=== PATIENT | male | born 1990 | race Caucasian/White ===

== ENCOUNTER 2020-07-25 11:49 | Emergency (ER) | payer MEDICAID, SELFPAY ==
[2020-07-25 11:53] VITALS: BP 115/57; BP 126/63; PULSE 105; PULSE 110; RESP 19; TEMP 36.5; O2SAT 97; O2SAT 98; BMI 23.0
[2020-07-25 11:56] VITALS: BP 115/57; PULSE 102; RESP 14; TEMP 36.5; O2SAT 96
--- NOTE | 2020-07-25 11:59 | ED_ITS ---
HPI - Seizure General Chief Complaint: Seizure Stated Complaint: WITNESSED SZ, ALERT/ORIENTED @ THIS TIME Time Seen by Provider: 07/25/20 11:58 Source: patient and EMS Mode of arrival: EMS Limitations: no limitations History of Present Illness HPI Narrative: 29 yo male with hx of GTC has seizures once a month on keppra BID 1000mg states he's compliant seizure in bed no trauma reported, did drink ETOH last night MD complaint: seizure Onset (ago): minute(s) Description of Episode: loss of consciousness and tonic-clonic movement Duration of episode: 4 -: minutes(s) Witnessed: Yes - by Other Trauma: No Seizure History: Yes Place: Home Possible Precipitating Event: other (ETOH) Associated symptoms: denies other symptoms Related Data Home Medications Medication Instructions Recorded Confirmed levetiracetam [Keppra] 1,000 mg PO BID 07/25/20 07/25/20 Previous Rx's Medication Instructions Recorded levetiracetam 1,000 mg PO BID #60 tab 07/25/20 Allergies Allergy/AdvReac Type Severity Reaction Status Date / Time No Known Allergies Allergy Verified 07/25/20 11:58 Review of Systems Review of Systems: Constitutional : No Weight loss, No Fever, No Chills, No Fatigue, No Malaise ENT/Mouth : No sore throat, No Rhinorrhea Eyes: No Eye Pain, No Swelling, No Redness Cardiovascular : No Chest Pain, No SOB, No Dyspnea on Exertion, No Orthopnea, No Edema, No Palpitations Respiratory : No Cough, No Sputum, No Wheezing Gastrointestinal : No Nausea, No Vomiting, No Diarrhea, No Constipation, No abdominal Pain, No Hematochezia, No Melena Genitourinary : No Dysuria, No Urinary Frequency, No Hematuria, Musculoskeletal : No joint pain, No Myalgias, No Joint Swelling Skin : No Skin Lesions, No rash Neuro : No Weakness, No Numbness, No Dizziness, No Headache, pos seizure Psych : No Anxiety/Panic, No Depression Heme/Lymph: No Bruising, No Bleeding,No Lymphadenopathy Endocrine : No Polyuria, No Polydipsia All other systems reviewed and are negative [facility] Past Medical History Attestation statement: The following information was validated with the patient. Medical History Seizures Social History Social History Alcohol intake: current Alcohol type: beer Patient Tobacco Use Status: Current everyday Tobacco user Use of substances other than those prescribed or required for medical reasons: No Advance Directives: Yes Advance Directives Information Provided: No Advance Directives on File: No Physical Exam Vital Signs: Vital Signs: Last Vital Signs Temp 97.7 F 07/25/20 11:56 Pulse 102 H 07/25/20 11:56 Resp 14 07/25/20 11:56 BP 115/57 L 07/25/20 11:56 Pulse Ox 96 07/25/20 11:56 Body Mass Index 23.0 Appearance: Alert. Oriented X3. No acute distress. Eyes: Pupils equal, round and reactive to light. ENT: Pharynx normal. Neck: Normal inspection. Neck supple. CVS: Normal heart rate and rhythm. Pulses normal. Respiratory: No respiratory distress. Breath sounds normal. Abdomen: Soft and nontender. Skin: Skin warm and dry. Normal skin color. Normal skin turgor. Extremities: No lower extremity edema. No calf ttp Neuro: Oriented X 3. No motor deficit. No sensory deficit. Course Course Course Narrative: patient alert and oriented x 3, GCS 15, patient at baseline, stable for DC at this time MDM - Seizure MDM Narrative Medical decision making narrative: 29 yo male with hx of GTC has seizures once a month on keppra BID 1000mg states he's compliant seizure in bed no trauma reported, did drink ETOH last night at this time will load with keppra obtain basic labs, possible ETOH as precipitating event - no trauma, dispo per results and improvement Lab Data Result diagrams: 07/25/20 12:17 07/25/20 12:17 Labs: Lab Results 07/25/20 07/25/20 07/25/20 Range/Units 11:57 12:17 12:17 WBC 7.9 (4.8-10.8) X10*3/uL RBC 4.64 (4.60-5.80) X10*6/uL Hgb 15.9 (14.0-18.0) g/dl Hct 45.7 (42-52) % MCV 98.5 H (80-98) fL MCH 34.3 H (27.0-33.0) pg MCHC 34.8 (31.0-36.0) g/dl RDW 13.4 (11.0-16.0) % Plt Count 199 (160-400) X10*3/uL MPV 10.2 (9.4-12.4) fL Immature Gran % (Auto) 1.9 H (0.0-0.4) % Neut % (Auto) 65.3 (45-73) % Lymph % (Auto) 23.5 (20-40) % [place] % (Auto) 6.9 (2-11) % Eos % (Auto) 1.6 (0-4) % Baso % (Auto) 0.8 (0-2) % Lymph # (Auto) 1.9 (1.2-4.9) X10*3/uL [place] # (Auto) 0.5 (0.1-1.2) X10*3/uL Eos # (Auto) 0.1 (0.0-0.4) X10*3/uL Baso # (Auto) 0.1 (0.0-0.2) X10*3/uL Abs Immat Gran (auto) 0.15 H (0.00-0.03) X10*3/uL Absolute Neuts (auto) 5.2 (2.0-8.3) X10*3/uL Absolute Nucleated RBC 0.000 (0.0-0.012) X10*3/uL Nucleated RBC % (auto) 0.0 (0.0-0.2) /100WBC Hold Blue Top SEE NOTE Sodium (135-145) mmol/L Potassium (3.3-5.1) mmol/L Chloride (96-108) mmol/L Carbon Dioxide (22-29) mmol/L Anion Gap (12-20) BUN (9-16) mg/dL Creatinine (0.5-1.4) mg/dL Estim Creat Clear Calc Estimated GFR POC Glucose 129 H (60-115) mg/dL Random Glucose (60-115) mg/dL Calcium (8.4-10.2) mg/dL Magnesium (1.6-2.6) mg/dL Total Bilirubin (0.0-1.0) mg/dL Direct Bilirubin (0.0-0.5) mg/dL AST (5-37) U/L ALT (0-40) U/L Alkaline Phosphatase (39-117) U/L Total Protein (6.5-8.0) g/dL Albumin (3.5-5.0) g/dL Lipase (8-78) U/L Ethyl Alcohol mg/dL 07/25/20 07/25/20 Range/Units 12:17 12:17 WBC (4.8-10.8) X10*3/uL RBC (4.60-5.80) X10*6/uL Hgb (14.0-18.0) g/dl Hct (42-52) % MCV (80-98) fL MCH (27.0-33.0) pg MCHC (31.0-36.0) g/dl RDW (11.0-16.0) % Plt Count (160-400) X10*3/uL MPV (9.4-12.4) fL Immature Gran % (Auto) (0.0-0.4) % Neut % (Auto) (45-73) % Lymph % (Auto) (20-40) % [place] % (Auto) (2-11) % Eos % (Auto) (0-4) % Baso % (Auto) (0-2) % Lymph # (Auto) (1.2-4.9) X10*3/uL [place] # (Auto) (0.1-1.2) X10*3/uL Eos # (Auto) (0.0-0.4) X10*3/uL Baso # (Auto) (0.0-0.2) X10*3/uL Abs Immat Gran (auto) (0.00-0.03) X10*3/uL Absolute Neuts (auto) (2.0-8.3) X10*3/uL Absolute Nucleated RBC (0.0-0.012) X10*3/uL Nucleated RBC % (auto) (0.0-0.2) /100WBC Hold Blue Top Sodium 139 (135-145) mmol/L Potassium 4.6 (3.3-5.1) mmol/L Chloride 102 (96-108) mmol/L Carbon Dioxide 22 (22-29) mmol/L Anion Gap 20 (12-20) BUN 11 (9-16) mg/dL Creatinine 1.32 (0.5-1.4) mg/dL Estim Creat Clear Calc 67.6 Estimated GFR > 60 POC Glucose (60-115) mg/dL Random Glucose 112 (60-115) mg/dL Calcium 9.3 (8.4-10.2) mg/dL Magnesium 2.4 (1.6-2.6) mg/dL Total Bilirubin 0.5 (0.0-1.0) mg/dL Direct Bilirubin 0.2 (0.0-0.5) mg/dL AST 74 H (5-37) U/L ALT 118 H (0-40) U/L Alkaline Phosphatase 123 H (39-117) U/L Total Protein 7.3 (6.5-8.0) g/dL Albumin 4.6 (3.5-5.0) g/dL Lipase 16 (8-78) U/L Ethyl Alcohol < 10 mg/dL ECG Data Attestation: I personally reviewed and interpreted this ECG as follows: ECG interpretation date: 07/25/20 ECG interpretation time: 12:14 Interpretation: Rate: 99 Rhythm: NSR Rubicon: normal Normal P waves. Normal SAMARIA. Normal QRS complex. ST T wave : no CHON, normal qTC: normal prior studies: no acute ischemia The study has been interpreted contemporaneously by me. . Discharge Plan Discharge Clinical Impression: Generalized seizure Patient Disposition: Home, Self-Care Instructions: Epilepsy (ED) Additional Instructions: return to ED for any worsening symptoms or concerns please see your neurologist STOP DRINKING ALCOHOL Prescriptions: New levetiracetam 1,000 mg tablet 1,000 mg PO BID Qty: 60 RF: 2 No Action levetiracetam [Keppra] 1,000 mg Tablet 1,000 mg PO BID RF: 0 Stand Alone Forms: Work/School Release
[2020-07-25 12:00] LABS: Glucose, Whole Blood 129 mg/dL (60-115)
[2020-07-25] MEDS: levETIRAcetam in NaCl (iso-os) 1,000 MG/100 ML PIGGYBACK 400 MG IV (12:11)
[2020-07-25 12:24] LABS: MANUAL DIFF FLAG NO
[2020-07-25 12:26] LABS: Basophils Absolute Auto 0.1 X10*3/uL (0.0-0.2); Basophils Percent Auto 0.8 % (0-2); Eosinophils Absolute Auto 0.1 X10*3/uL (0.0-0.4); Eosinophils Percent Auto 1.6 % (0-4); Hematocrit 45.7 % (42-52); Hemoglobin 15.9 g/dl (14.0-18.0); Imm Gran Abs Auto 0.15 X10*3/uL (0.00-0.03); Imm Gran Pct Auto 1.9 % (0.0-0.4); Lymphocytes Absolute Auto 1.9 X10*3/uL (1.2-4.9); Lymphocytes Percent Auto 23.5 % (20-40); Mean Corpuscular HGB Conc 34.8 g/dl (31.0-36.0); Mean Corpuscular Hemoglobin 34.3 pg (27.0-33.0); Mean Corpuscular Volume 98.5 fL (80-98); Mean Platelet Volume 10.2 fL (9.4-12.4); Monocytes Absolute Auto 0.5 X10*3/uL (0.1-1.2); Monocytes Percent Auto 6.9 % (2-11); Neutrophils Absolute Auto 5.2 X10*3/uL (2.0-8.3); Neutrophils Percent Auto 65.3 % (45-73); Platelet Count 199 X10*3/uL (160-400); Red Blood Count 4.64 X10*6/uL (4.60-5.80); Red Cell Distribution Width 13.4 % (11.0-16.0); White Blood Count 7.9 X10*3/uL (4.8-10.8)
[2020-07-25 12:50] LABS: Ethanol < 10 mg/dL
[2020-07-25 13:02] LABS: Alanine Aminotransferase 118 U/L (0-40); Albumin Level 4.6 g/dL (3.5-5.0); Alkaline Phosphatase 123 U/L (39-117); Anion Gap 20 (12-20); Aspartate Amino Transferase 74 U/L (5-37); Bilirubin Direct 0.2 mg/dL (0.0-0.5); Bilirubin Total 0.5 mg/dL (0.0-1.0); Blood Urea Nitrogen 11 mg/dL (9-16); Calcium 9.3 mg/dL (8.4-10.2); Carbon Dioxide 22 mmol/L (22-29); Chloride 102 mmol/L (96-108); Creatinine Clr Calc Pharmacy 67.6; Estimated Glomerular Filt Rate > 60; Glucose Random 112 mg/dL (60-115); Lipase 16 U/L (8-78); Magnesium 2.4 mg/dL (1.6-2.6); Potassium 4.6 mmol/L (3.3-5.1); Sodium 139 mmol/L (135-145); Total Protein 7.3 g/dL (6.5-8.0)
--- NOTE | 2020-07-25 14:55 | ECG_ITS ---
Test Reason : SEIZURE Blood Pressure : / mmHG Vent. Rate : 099 BPM Atrial Rate : 099 BPM P-R Int : 130 ms QRS Dur : 082 ms QT Int : 344 ms P-R-T Axes : 044 083 012 degrees QTc Int : 441 ms Normal sinus rhythm Nonspecific T wave abnormality Abnormal ECG No previous ECGs available Referred By: Mariana Larsen Electronically Signed By:Yohan Corbett
== END 2020-07-25 13:46 | disposition home or self-care (01) ==
PROVIDERS: Emergency Provider Emergency Medicine
DX: G40.409 Other generalized epilepsy and epileptic syndromes, not intractable, without status epilepticus (principal); F17.210 Nicotine dependence, cigarettes, uncomplicated; Z79.899 Other long term (current) drug therapy
CPT/HCPCS: 36415; 80048; 80076; 82077; 82947; 83690; 83735; 85025; 93005; 96374; 99284; J1953

== ENCOUNTER 2020-08-03 12:42 | Emergency (ER) | payer MEDICAID, SELFPAY ==
--- NOTE | 2020-08-03 12:47 | ED.SEIZURE ---
HPI - Seizure General Chief Complaint: Seizure Stated Complaint: ?seizure, fell out of shower Time Seen by Provider: 08/03/20 12:47 Source: patient, EMS and old records reviewed Mode of arrival: EMS Limitations: no limitations History of Present Illness HPI Narrative: 29 yo male with known seizure disorder here with GTC seizure today while showering no obvious trauma reports compliance with her 1,000mg BID of keppra and took a dose this AM, he has not seen a Neurologist, I saw him for a seizure on 07/25 and refilled his Rx and at that time he had been drinking ETOH, he tells me he is no longer drinking at this time, no other precipitating events. MD complaint: seizure Onset (ago): minute(s) Description of Episode: loss of consciousness and tonic-clonic movement Witnessed: No Trauma: No Seizure History: Yes Place: Home Possible Precipitating Event: none Associated symptoms: denies other symptoms Treatments prior to arrival: none Related Data Home Medications Medication Instructions Recorded Confirmed levetiracetam [Keppra] 1,000 mg PO BID 07/25/20 07/25/20 Previous Rx's Medication Instructions Recorded levetiracetam 1,000 mg PO BID #60 tab 07/25/20 Allergies Allergy/AdvReac Type Severity Reaction Status Date / Time No Known Allergies Allergy Verified 07/25/20 11:58 Review of Systems Review of Systems: Constitutional : No Weight loss, No Fever, No Chills, No Fatigue, No Malaise ENT/Mouth : No sore throat, No Rhinorrhea Eyes: No Eye Pain, No Swelling, No Redness Cardiovascular : No Chest Pain, No SOB, No Dyspnea on Exertion, No Orthopnea, No Edema, No Palpitations Respiratory : No Cough, No Sputum, No Wheezing Gastrointestinal : No Nausea, No Vomiting, No Diarrhea, No Constipation, No abdominal Pain, No Hematochezia, No Melena Genitourinary : No Dysuria, No Urinary Frequency, No Hematuria, Musculoskeletal : No joint pain, No Myalgias, No Joint Swelling Skin : No Skin Lesions, No rash Neuro : No Weakness, No Numbness, No Dizziness, No Headache, pos weakness Psych : No Anxiety/Panic, No Depression Heme/Lymph: No Bruising, No Bleeding,No Lymphadenopathy Endocrine : No Polyuria, No Polydipsia All other systems reviewed and are negative COUNT INCLUDES THE [facility] Past Medical History Attestation statement: The following information was validated with the patient. Medical History Seizures Social History Social History (Updated 08/03/20 @ 12:50 by Mariana Larsen DO) Alcohol intake: former Patient Tobacco Use Status: Current everyday Tobacco user Advance Directives: No Advance Directives Information Provided: Yes Physical Exam Vital Signs: Vital Signs: Last Vital Signs Temp 98.7 F 08/03/20 12:51 Pulse 92 08/03/20 12:51 Resp 18 08/03/20 12:51 Pulse Ox 99 08/03/20 12:51 Body Mass Index 23.0 Appearance: Alert. Oriented X3. No acute distress. Eyes: Pupils equal, round and reactive to light. ENT: Pharynx normal. Atraumatic Neck: Normal inspection. Neck supple. CVS: Normal heart rate and rhythm. Pulses normal. Respiratory: No respiratory distress. Breath sounds normal. Abdomen: Soft and nontender. Skin: Skin warm and dry. Normal skin color. Normal skin turgor. Extremities: No lower extremity edema. No calf ttp Neuro: Oriented X 3. No motor deficit. No sensory deficit. Course Course Course Narrative: GCS 15, no trauma at baseline, + for cocaine unsure if his lifestyle is affecting his medications will again instruct abstinence from drugs MDM - Seizure MDM Narrative Medical decision making narrative: 29 yo male with known seizure disorder here with GTC seizure today while showering no obvious trauma reports compliance with her 1,000mg BID of keppra and took a dose this AM, he has not seen a Neurologist, I saw him for a seizure on 07/25 and refilled his Rx and at that time he had been drinking ETOH, he tells me he is no longer drinking at this time, no other precipitating events. at this time no trauma, states he is compliant with his keppra, denies ETOH use, will observe obtain GIO and ETOH level as he states he is compliant with his medications Lab Data Labs: Lab Results 08/03/20 08/03/20 08/03/20 Range/Units 12:55 13:28 13:28 POC Glucose 140 H (60-115) mg/dL Urine Opiates Screen Not Detected (Not Detect) Ur Barbiturates Screen Not Detected (Not Detect) Ur Phencyclidine Scrn Not Detected (Not Detect) Ur Amphetamines Screen Not Detected (Not Detect) U Benzodiazepines Scrn Not Detected (Not Detect) Urine Cocaine Screen POSITIVE H (Not Detect) U Marijuana (THC) Screen POSITIVE H (Not Detect) Ethyl Alcohol < 10 mg/dL Discharge Plan Discharge Clinical Impression: Epileptic seizure Qualifiers: Epilepsy type: other Intractability: not intractable Status epilepticus: without status epilepticus Qualified Code(s): G40.802 - Other epilepsy, not intractable, without status epilepticus Patient Disposition: Home, Self-Care Instructions: Epilepsy (ED) Additional Instructions: return to ED for any worsening symptoms or concerns continue your keppra STOP DRINKING AND DOING DRUGS THIS IS WORSENING YOUR SEIZURE CONDITION YOU TESTED POSITIVE FOR COCAINE PLEASE SEE YOUR NEUROLOGIST Prescriptions: No Action levetiracetam [Keppra] 1,000 mg Tablet 1,000 mg PO BID RF: 0 levetiracetam 1,000 mg tablet 1,000 mg PO BID Qty: 60 RF: 2
[2020-08-03 12:51] VITALS: BP 114/70; PULSE 100; PULSE 92; RESP 18; TEMP 37.1; O2SAT 99; BMI 23.0
[2020-08-03 13:00] LABS: Glucose, Whole Blood 140 mg/dL (60-115)
[2020-08-03 14:16] LABS: Ethanol < 10 mg/dL
[2020-08-03 14:19] LABS: Amphetamine Screen Urine Not Detected (Not Detect); Barbiturates, Urine Not Detected (Not Detect); Benzodiazepines Screen Urine Not Detected (Not Detect); Cannabinoid Screen Urine POSITIVE (Not Detect); Cocaine Screen Urine POSITIVE (Not Detect); Opiate Screen Urine Not Detected (Not Detect); Phencyclidine Screen Urine Not Detected (Not Detect)
[2020-08-03 14:46] VITALS: BP 134/72; PULSE 77; RESP 16; O2SAT 97
== END 2020-08-03 14:47 | disposition home or self-care (01) ==
PROVIDERS: Emergency Provider Emergency Medicine
DX: G40.802 Other epilepsy, not intractable, without status epilepticus (principal); Z79.899 Other long term (current) drug therapy; Z91.81 History of falling
CPT/HCPCS: 36415; 80307; 82077; 82947; 99283; 99284

== ENCOUNTER 2020-08-10 14:28 | Emergency (ER) | payer MEDICAID, SELFPAY ==
--- NOTE | ~2020-08-10 | CT_ITS ---
EXAMINATION: CT CERVICAL SPINE WITHOUT CONTRAST CLINICAL INFORMATION: Seizure, fall, trauma COMPARISON: CT head 08/10/2020 TECHNIQUE: Multidetector volumetric CT imaging of the cervical spine is performed without contrast in the axial plane. Additional 2D reformatted coronal and sagittal images are generated on the CT workstation and uploaded to PACS. This CT examination was performed using dose optimization techniques as appropriate, variously including the following: *Automated exposure control *Adjustment of mA and/or kV according to patient size (this includes techniques or standardized protocols for targeted exams where dose is matched to indication/reason for exam; i.e. extremities or head) *Use of iterative reconstruction technique DLP: 571 mGy-cm FINDINGS: There is no vertebral compression fracture, fracture line, spondylolisthesis, or prevertebral soft tissue swelling. The craniocervical junction appears normal. The odontoid appears intact. There is mild straightening cervical lordosis. There are no significant degenerative changes. There is no apical pneumothorax. There is a 1.4 cm polyp or retention cyst left maxillary sinus. No fluid level. CT/CT cervical spine wo con IMPRESSION: No acute bony abnormality or prevertebral soft tissue swelling.
--- NOTE | ~2020-08-10 | CT_ITS ---
EXAMINATION: CT HEAD WITHOUT CONTRAST CLINICAL INFORMATION: Seizure. Age 29. COMPARISON: None TECHNIQUE: Contiguous axial imaging was performed from the skull base to vertex without intravenous administration of contrast. Additional 2-D coronal and sagittal reformatted images are generated on the CT workstation and uploaded to PACS. This CT examination was performed using dose optimization techniques as appropriate, variously including the following: *Automated exposure control *Adjustment of mA and/or kV according to patient size (this includes techniques or standardized protocols for targeted exams where dose is matched to indication/reason for exam; i.e. extremities or head) *Use of iterative reconstruction technique DLP: 714 mGy-cm FINDINGS: There is no intracranial hemorrhage or hematoma. No intraventricular hemorrhage. The ventricles are normal in size. There is no hydrocephalus, edema, or mass effect. The valle-white matter differentiation is symmetric. 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 There is no visible acute territorial infarct or mass lesion. The calvarium appears intact. There is no pneumocephalus or orbital emphysema. The visualized sinuses and middle ears and mastoid air cells show no significant mucosal thickening. There are no air-fluid levels. CT/CT head/brain wo con IMPRESSION: No acute intracranial abnormality.
[2020-08-10 14:36] VITALS: BP 124/62; PULSE 98; RESP 20; TEMP 36.9; O2SAT 96; BMI 25.6
[2020-08-10 15:26] LABS: MANUAL DIFF FLAG NO
[2020-08-10 15:29] LABS: Basophils Absolute Auto 0.1 X10*3/uL (0.0-0.2); Basophils Percent Auto 0.6 % (0-2); Eosinophils Absolute Auto 0.2 X10*3/uL (0.0-0.4); Eosinophils Percent Auto 2.7 % (0-4); Hematocrit 44.1 % (42-52); Hemoglobin 15.5 g/dl (14.0-18.0); Imm Gran Abs Auto 0.02 X10*3/uL (0.00-0.03); Imm Gran Pct Auto 0.3 % (0.0-0.4); Lymphocytes Absolute Auto 1.2 X10*3/uL (1.2-4.9); Lymphocytes Percent Auto 15.5 % (20-40); Mean Corpuscular HGB Conc 35.1 g/dl (31.0-36.0); Mean Corpuscular Hemoglobin 34.3 pg (27.0-33.0); Mean Corpuscular Volume 97.6 fL (80-98); Mean Platelet Volume 9.9 fL (9.4-12.4); Monocytes Absolute Auto 0.7 X10*3/uL (0.1-1.2); Monocytes Percent Auto 8.7 % (2-11); Neutrophils Absolute Auto 5.6 X10*3/uL (2.0-8.3); Neutrophils Percent Auto 72.2 % (45-73); Platelet Count 210 X10*3/uL (160-400); Red Blood Count 4.52 X10*6/uL (4.60-5.80); Red Cell Distribution Width 13.2 % (11.0-16.0); White Blood Count 7.7 X10*3/uL (4.8-10.8)
[2020-08-10] MEDS: levETIRAcetam in NaCl (iso-os) 1,000 MG/100 ML PIGGYBACK 400 MG IV (15:30)
[2020-08-10] MEDS: 0.9 % Sodium Chloride 1,000 ML 999 ML IV (15:30)
[2020-08-10 15:38] LABS: Partial Thromboplastin Time 26.8 SEC (24.1-38.0)
[2020-08-10 15:54] LABS: Alanine Aminotransferase 89 U/L (0-40); Albumin Level 4.5 g/dL (3.5-5.0); Alkaline Phosphatase 118 U/L (39-117); Anion Gap 13 (12-20); Aspartate Amino Transferase 57 U/L (5-37); Bilirubin Total 0.6 mg/dL (0.0-1.0); Blood Urea Nitrogen 13 mg/dL (9-16); Calcium 9.2 mg/dL (8.4-10.2); Carbon Dioxide 24 mmol/L (22-29); Chloride 107 mmol/L (96-108); Estimated Glomerular Filt Rate > 60; Glucose Random 118 mg/dL (60-115); Magnesium 2.1 mg/dL (1.6-2.6); Potassium 4.1 mmol/L (3.3-5.1); Sodium 140 mmol/L (135-145); Total Protein 7.3 g/dL (6.5-8.0)
--- NOTE | 2020-08-10 17:17 | ED_ITS ---
HPI - Seizure General Chief Complaint: Seizure Stated Complaint: Seizure Source: patient Mode of arrival: ambulatory Limitations: no limitations History of Present Illness HPI Narrative: Patient presents to the ED for seizure. Patient admits to being without his Keppra for 2 days. Patient states he ran out of his medication. Patient has facial head trauma. Patient states he fell a couple weeks ago, but never had any imaging. Patient presently denies any physical complaints. Seizure History: Yes Related Data Home Medications Medication Instructions Recorded Confirmed levetiracetam [Keppra] 1,000 mg PO BID 07/25/20 07/25/20 Previous Rx's Medication Instructions Recorded levetiracetam 1,000 mg PO BID #60 tab 07/25/20 levetiracetam [Keppra] 1,500 mg PO BID 20 Days #60 tab 08/10/20 Allergies Allergy/AdvReac Type Severity Reaction Status Date / Time No Known Allergies Allergy Verified 07/25/20 11:58 Review of Systems Review of Systems: Yes all other systems are reviewed and are negative Constitutional: Constitutional: Reports as per HPI and Reports no additional constitutional complaints Eyes: Eyes: Reports as per HPI and Reports no additional eye complaints ENT: Reports system reviewed and no additional complaints, except as documented and Reports as per HPI Cardiovascular: Cardiovascular: Reports as per HPI and Reports no additional cardiovascular complaints Respiratory: Respiratory: Reports as per HPI and Reports no additional respiratory complaints Gastrointestinal: Gastrointestinal: Reports as per HPI and Reports no additional gastrointestinal complaints Genitourinary: Genitourinary: Reports no additional male genitourinary complaints and Reports as per HPI Musculoskeletal: Musculoskeletal: Reports no additional musculoskeletal complaints and Reports as per HPI Neurologic: Reports system reviewed and no additional complaints, except as documented and Reports as per HPI Psychiatric: Psychiatric: Reports no additional psychiatric complaints and Reports as per HPI PMFSH Past Medical History Medical History Seizures Social History Social History (Updated 08/03/20 @ 12:50 by Mariana Larsen DO) Alcohol intake: former Patient Tobacco Use Status: Current everyday Tobacco user Advance Directives: No Advance Directives Information Provided: No Physical Exam Vital Signs: Vital Signs: Last Vital Signs Temp 98.5 F 08/10/20 14:36 Pulse 98 08/10/20 14:36 Resp 20 08/10/20 14:36 BP 124/62 08/10/20 14:36 Pulse Ox 96 08/10/20 14:36 Body Mass Index 25.6 Const: General: cooperative, healthy appearing, comfortable, no acute distress, well developed, alert, awake and Physically active Orientation/consciousness: patient oriented x3 HENMT: Other: Patient states facial abrasions or 3-week-old. Head: Yes normal to inspection, Yes No palpable skull fracture present, Yes normocephalic and Yes abrasion (Frontal maxillary and zygomatic abrasions.) Eyes: General: appearance normal, both eyes and all related structures Neck: Neck: Yes normal visual inspection, Yes full ROM, Yes no lymphade nopathy, Yes no meningeal signs, Yes trachea midline, Yes supple and No tender Chest: Chest palpation & inspection: normal inspection of the chest and normal palpation of entire chest wall Resp: Effort & Inspection: normal respiratory effort and able to speak in complete sentences Auscultation: clear to auscultation bilaterally Cardio: Jugular venous distension: no JVD Heart sounds: S1 normal heart sound present and S2 normal heart sound present GI: Inspection: Yes normal to inspection and No abdominal wall ecchymosis Palpation (GI): Soft to palpation, not firm, nontender, no guarding and not rigid : General: No CVA tenderness and Yes no CVA tenderness Back/Spine/Pelvis: Back: no CVA tenderness, No CVA tenderness and No back tenderness Skin: General skin exam: no rashes or lesions noted and elasticity normal Neuro: General: patient oriented x3, gait normal, no meningeal signs and CN's II-XI intact bilaterally Cranial nerves: Yes CN's II-XII intact bilaterally Extrem: General: Yes normal to inspection and Yes full ROM Psych: Appearance: grossly normal, well kempt and not disheveled Course Course Course Narrative: Patient will have labs and be given Keppra 1000 IV. Although trauma by seem old patient never had evaluated so was sent for head CT cervical spine CT. Reevaluation(s) Reevaluation #1: Patient labs are baseline. Head CT came back normal cervical spine came back normal. . Seizure disorder due to noncompliance with medications. Will send patient with prescription for Keppra Time: 17:37 MDM - Seizure MDM Narrative Medical decision making narrative: Seizure due to noncompliance Lab Data Result diagrams: 08/10/20 15:23 08/10/20 15:23 Labs: Lab Results 08/10/20 08/10/20 08/10/20 Range/Units 15:23 15:23 15:23 WBC 7.7 (4.8-10.8) X10*3/uL RBC 4.52 L (4.60-5.80) X10*6/uL Hgb 15.5 (14.0-18.0) g/dl Hct 44.1 (42-52) % MCV 97.6 (80-98) fL MCH 34.3 H (27.0-33.0) pg MCHC 35.1 (31.0-36.0) g/dl RDW 13.2 (11.0-16.0) % Plt Count 210 (160-400) X10*3/uL MPV 9.9 (9.4-12.4) fL Immature Gran % (Auto) 0.3 (0.0-0.4) % Neut % (Auto) 72.2 (45-73) % Lymph % (Auto) 15.5 L (20-40) % [place] % (Auto) 8.7 (2-11) % Eos % (Auto) 2.7 (0-4) % Baso % (Auto) 0.6 (0-2) % Lymph # (Auto) 1.2 (1.2-4.9) X10*3/uL [place] # (Auto) 0.7 (0.1-1.2) X10*3/uL Eos # (Auto) 0.2 (0.0-0.4) X10*3/uL Baso # (Auto) 0.1 (0.0-0.2) X10*3/uL Abs Immat Gran (auto) 0.02 (0.00-0.03) X10*3/uL Absolute Neuts (auto) 5.6 (2.0-8.3) X10*3/uL Absolute Nucleated RBC 0.000 (0.0-0.012) X10*3/uL Nucleated RBC % (auto) 0.0 (0.0-0.2) /100WBC PT 12.0 (10.8-13.0) SEC INR 1.0 (0.9-1.1) APTT 26.8 (24.1-38.0) SEC Sodium 140 (135-145) mmol/L Potassium 4.1 (3.3-5.1) mmol/L Chloride 107 (96-108) mmol/L Carbon Dioxide 24 (22-29) mmol/L Anion Gap 13 (12-20) BUN 13 (9-16) mg/dL Creatinine 1.36 (0.5-1.4) mg/dL Estim Creat Clear Calc 63.0 Estimated GFR > 60 Random Glucose 118 H (60-115) mg/dL Calcium 9.2 (8.4-10.2) mg/dL Magnesium 2.1 (1.6-2.6) mg/dL Total Bilirubin 0.6 (0.0-1.0) mg/dL AST 57 H (5-37) U/L ALT 89 H (0-40) U/L Alkaline Phosphatase 118 H (39-117) U/L Total Protein 7.3 (6.5-8.0) g/dL Albumin 4.5 (3.5-5.0) g/dL Discharge Plan Discharge Clinical Impression: Generalized seizure Patient Disposition: Home, Self-Care Instructions: Recurrent Seizures in Adults (ED) Additional Instructions: Return to the ED immediately for another seizure, headache, dizziness, nausea, vomiting, chest pain, shortness of breath, or any other concerning symptoms. Please follow-up with PCP Prescriptions: New levetiracetam [Keppra] 1,000 mg tablet 1,500 mg PO BID 20 Days Qty: 60 RF: 0 No Action levetiracetam [Keppra] 1,000 mg Tablet 1,000 mg PO BID RF: 0 levetiracetam 1,000 mg tablet 1,000 mg PO BID Qty: 60 RF: 2 Print Language: [place]
[2020-08-10 18:09] LABS: Glucose Urine UA NEG (NEG); Leukocyte Esterase Urine NEG (NEG); Nitrite Urine NEG (NEG); Specific Gravity - Urine 1.025 (1.005-1.025); Urine Blood TRACE (NEG); Urine Ketones NEG (NEG); Urine Protein NEG (NEG-TRACE)
[2020-08-10 18:12] LABS: Appearance Urine CLEAR; Color Urine YELLOW
[2020-08-10 18:19] LABS: RBC Urine 0-2 /HPF (0); WBC Urine 0 /HPF (0-4)
[2020-08-10 18:32] LABS: Amphetamine Screen Urine Not Detected (Not Detect); Barbiturates, Urine Not Detected (Not Detect); Benzodiazepines Screen Urine Not Detected (Not Detect); Cannabinoid Screen Urine POSITIVE (Not Detect); Cocaine Screen Urine Not Detected (Not Detect); Opiate Screen Urine Not Detected (Not Detect); Phencyclidine Screen Urine Not Detected (Not Detect)
[2020-08-10 18:34] VITALS: BP 128/78; PULSE 84; RESP 18
== END 2020-08-10 18:38 | disposition home or self-care (01) ==
PROVIDERS: Physician Assistant; Emergency Provider Internal Medicine
DX: G40.89 Other seizures (principal); Z91.14 Patient's other noncompliance with medication regimen
CPT/HCPCS: 36415; 70450; 72125; 80053; 80307; 81001; 83735; 85025; 85610; 85730; 96361; 96374; 99283; 99284; J1953

== ENCOUNTER 2020-08-13 12:58 | Emergency (ER) | payer MEDICAID, SELFPAY ==
--- NOTE | ~2020-08-13 | CT_ITS ---
EXAMINATION: CT HEAD WITHOUT CONTRAST CLINICAL INFORMATION: Struck head after seizure COMPARISON: Previous head CT 08/10/2020 TECHNIQUE: Contiguous axial imaging was performed from the skull base to vertex without intravenous administration of contrast. This CT examination was performed using dose optimization techniques as appropriate, variously including the following: *Automated exposure control *Adjustment of mA and/or kV according to patient size (this includes techniques or standardized protocols for targeted exams where dose is matched to indication/reason for exam; i.e. extremities or head) *Use of iterative reconstruction technique DLP: 678 mGy-cm FINDINGS: There is no evidence of acute intracranial hemorrhage or territorial infarction. No abnormal mass effect or midline shift is seen. Wise to white matter differentiation is well preserved. No extra-axial fluid collections are identified. The ventricles are normal in size. There is no abnormal attenuation within the brain parenchyma. The osseous structures and soft tissues are normal. The mastoid air cells and visualized portions of the paranasal sinuses are well aerated. CT/CT head/brain wo con IMPRESSION: Unremarkable exam.
[2020-08-13 13:03] VITALS: BP 133/83; PULSE 108; RESP 18; TEMP 37.1; O2SAT 98; BMI 24.7
--- NOTE | 2020-08-13 13:06 | ED_ITS ---
HPI - Seizure General Chief Complaint: Seizure Stated Complaint: SZ VS SYNCOPE, NO KEPRA FOR WEEKS Time Seen by Provider: 08/13/20 13:01 Source: patient, EMS and old records reviewed Mode of arrival: EMS Limitations: no limitations History of Present Illness MD complaint: seizure Onset (ago): minute(s) Description of Episode: loss of consciousness and tonic-clonic movement -: minutes(s) Witnessed: Yes - by Bystander Trauma: Yes (struck head on counter) Seizure History: Yes Place: Home Possible Precipitating Event: other (has not taken keppra) Associated symptoms: denies other symptoms Treatments prior to arrival: none Related Data Home Medications Medication Instructions Recorded Confirmed levetiracetam [Keppra] 1,000 mg PO BID 07/25/20 07/25/20 Previous Rx's Medication Instructions Recorded levetiracetam 1,000 mg PO BID #60 tab 07/25/20 levetiracetam [Keppra] 1,500 mg PO BID 20 Days #60 tab 08/10/20 levetiracetam 1,000 mg PO BID #60 tab 08/13/20 Allergies Allergy/AdvReac Type Severity Reaction Status Date / Time No Known Allergies Allergy Verified 07/25/20 11:58 Review of Systems Review of Systems: Constitutional : No Weight loss, No Fever, No Chills, No Fatigue, No Malaise ENT/Mouth : No sore throat, No Rhinorrhea Eyes: No Eye Pain, No Swelling, No Redness Cardiovascular : No Chest Pain, No SOB, No Dyspnea on Exertion, No Orthopnea, No Edema, No Palpitations Respiratory : No Cough, No Sputum, No Wheezing Gastrointestinal : No Nausea, No Vomiting, No Diarrhea, No Constipation, No abdominal Pain, No Hematochezia, No Melena Genitourinary : No Dysuria, No Urinary Frequency, No Hematuria, Musculoskeletal : No joint pain, No Myalgias, No Joint Swelling Skin : No Skin Lesions, No rash Neuro : No Weakness, No Numbness, No Dizziness, pos Headache, pos seizure Psych : No Anxiety/Panic, No Depression Heme/Lymph: No Bruising, No Bleeding,No Lymphadenopathy Endocrine : No Polyuria, No Polydipsia All other systems reviewed and are negative PMFSH Past Medical History Attestation statement: The following information was validated with the patient. Medical History Seizures Social History Social History Alcohol intake: never Patient Tobacco Use Status: Current everyday Tobacco user Use of substances other than those prescribed or required for medical reasons: No Advance Directives: Yes Advance Directives Information Provided: No Advance Directives on File: No Physical Exam Vital Signs: Vital Signs: Last Vital Signs Temp 98.7 F 08/13/20 13:03 Pulse 77 08/13/20 13:54 Resp 16 08/13/20 13:54 BP 136/81 08/13/20 13:54 Pulse Ox 99 08/13/20 13:54 Body Mass Index 24.7 Appearance: Alert. Oriented X3. No acute distress. Eyes: Pupils equal, round and reactive to light. ENT: Pharynx normal. Abrasions to forehead Neck: Normal inspection. Neck supple. CVS: Normal heart rate and rhythm. Pulses normal. Respiratory: No respiratory distress. Breath sounds normal. Abdomen: Soft and non-tender. Skin: Skin warm and dry. Normal skin color. Normal skin turgor. Extremities: No lower extremity edema. No calf ttp Neuro: Oriented X 3. No motor deficit. No sensory deficit. Course Course Course Narrative: [facility] asks for him to come to the pharmacy tomorrow to waste picker Rx, Rx is $[address], GCS 15 can be DC home with an adult ride MDM - Seizure MDM Narrative Medical decision making narrative: 29 yo male 4th visit for seizures he has been given Rx on DC but he now states he can't fill it as he doesn't have insurance cannot afford it and is from [place], at this time CT head for trauma has no neck pain no midline ttp, he is GCS 15, he will be given IV keppra, case checker involved keppra is 24 dollars for a month, [facility] pharmacy will fill it for him and it will be available tomorrow AM Discharge Plan Discharge Clinical Impression: Generalized seizure Patient Disposition: Home, Self-Care Instructions: Epilepsy (ED) Additional Instructions: return to ED for any worsening symptoms or concerns [facility] [address] WILL HAVE YOUR PRESCRIPTION TOMORROW FOR $25.00 PLEASE GO TO THE PHARMACY THEY WILL HELP YOU GET YOUR PRESCRIPTION AND COVER YOUR COSTS WELL HELP YOU GET INSURANCE Prescriptions: New levetiracetam 1,000 mg tablet 1,000 mg PO BID Qty: 60 RF: 1 No Action levetiracetam [Keppra] 1,000 mg Tablet 1,000 mg PO BID RF: 0 levetiracetam 1,000 mg tablet 1,000 mg PO BID Qty: 60 RF: 2 levetiracetam [Keppra] 1,000 mg tablet 1,500 mg PO BID 20 Days Qty: 60 RF: 0
[2020-08-13] MEDS: levETIRAcetam in NaCl (iso-os) 1,000 MG/100 ML PIGGYBACK 400 MG IV (13:53)
[2020-08-13 13:54] VITALS: BP 136/81; PULSE 77; RESP 16; O2SAT 99
== END 2020-08-13 14:51 | disposition home or self-care (01) ==
PROVIDERS: Emergency Provider Emergency Medicine
DX: G40.89 Other seizures (principal)
CPT/HCPCS: 70450; 99284; J1953

== ENCOUNTER 2020-09-15 13:28 | Emergency (ER) | payer MEDICAID, SELFPAY ==
[2020-09-15 13:35] VITALS: BP 124/70; BP 138/78; PULSE 103; PULSE 110; RESP 16; TEMP 37.1; O2SAT 96; O2SAT 98; BMI 23.0
--- NOTE | 2020-09-15 13:41 | ED_ITS ---
HPI - Seizure General Chief Complaint: Seizure Stated Complaint: SEIZURE Time Seen by Provider: 09/15/20 13:41 Source: patient Mode of arrival: EMS Limitations: no limitations History of Present Illness HPI Narrative: Witnessed seizure on Keppra, last seizure was a couple of weeks ago. complaint: seizure Onset (ago): minute(s) Description of Episode: tonic-clonic movement Witnessed: Yes - by Bystander Seizure History: Yes Place: Home Possible Precipitating Event: none Associated symptoms: denies other symptoms Related Data Home Medications Medication Instructions Recorded Confirmed levetiracetam [Keppra] 1,000 mg PO BID 07/25/20 07/25/20 Previous Rx's Medication Instructions Recorded levetiracetam 1,000 mg PO BID #60 tab 07/25/20 levetiracetam [Keppra] 1,500 mg PO BID 20 Days #60 tab 08/10/20 levetiracetam 1,000 mg PO BID #60 tab 08/13/20 Allergies Allergy/AdvReac Type Severity Reaction Status Date / Time No Known Allergies Allergy Verified 07/25/20 11:58 Review of Systems Constitutional: Constitutional: Reports no additional constitutional complaints Eyes: Eyes: Reports no additional eye complaints ENT: Denies dizziness Cardiovascular: Cardiovascular: Reports no additional cardiovascular complaints Respiratory: Respiratory: Reports as per HPI Gastrointestinal: Gastrointestinal: Reports no additional gastrointestinal complaints Musculoskeletal: Musculoskeletal: Reports no additional musculoskeletal complaints Integumentary/Breasts: Skin/Breast: Denies rash Neurologic: Reports system reviewed and no additional complaints, except as documented, Denies dizziness and Denies Sensory deficit (Neuro) Psychiatric: Psychiatric: Denies anxiety [facility] Past Medical History Medical History Seizures Social History Social History Alcohol intake: never Patient Tobacco Use Status: Current everyday Tobacco user Advance Directives: No Advance Directives Information Provided: Yes Physical Exam Vital Signs: Vital Signs: Last Vital Signs Temp 98.5 F 09/15/20 13:57 Pulse 96 09/15/20 13:57 Resp 12 09/15/20 13:57 BP 118/69 09/15/20 13:57 Pulse Ox 97 09/15/20 13:57 Body Mass Index 23.0 Const: General: healthy appearing Nutritional Appearance: average body habitus Orientation/consciousness: oriented to person and patient oriented x3 Limitations: no limitations HENMT: Head: Yes normal to inspection Ears: external ears normal General nose exam: Normal external nose present Mouth: Normal oral and palatal mucosa present and oropharynx normal Throat: Yes posterior oropharynx normal Eyes: General: appearance normal, both eyes and all related structures Neck: Other: supple Neck: Yes normal visual inspection Chest: Chest palpation & inspection: normal inspection of the chest Resp: Auscultation: clear to auscultation bilaterally Cardio: Jugular venous distension: no JVD Rate: regular rate Rhythm: regular rhythm Heart sounds: S1 normal heart sound present and S2 normal heart sound present GI: Inspection: Yes normal to inspection Palpation (GI): Soft to palpation, nontender and No hepatosplenomegaly present Auscultation: normal bowel sounds : General: Yes no CVA tenderness Back/Spine/Pelvis: Back: no CVA tenderness Skin: General skin exam: no rashes or lesions noted Neuro: General: oriented to person and patient oriented x3 Cranial nerves: Yes CN's II-XII intact bilaterally Motor exam (neuro): 5/5 motor strength present throughout Sensory Exam: No Sensory deficit (Neuro) Extrem: General: Yes normal to inspection Psych: Appearance: grossly normal Course Reevaluation(s) Reevaluation #1: patient resting comfortably, will give extra dose of keppra and dc home Time: 15:30 MDM - Seizure Lab Data Result diagrams: 09/15/20 13:56 09/15/20 13:56 Labs: Lab Results 09/15/20 09/15/20 09/15/20 Range/Units 13:56 13:56 13:56 WBC 8.0 (4.8-10.8) X10*3/uL RBC 4.74 (4.60-5.80) X10*6/uL Hgb 16.3 (14.0-18.0) g/dl Hct 47.5 (42-52) % MCV 100.2 H (80-98) fL MCH 34.4 H (27.0-33.0) pg MCHC 34.3 (31.0-36.0) g/dl RDW 12.9 (11.0-16.0) % Plt Count 246 (160-400) X10*3/uL MPV 10.0 (9.4-12.4) fL Immature Gran % (Auto) 0.4 (0.0-0.4) % Neut % (Auto) 59.4 (45-73) % Lymph % (Auto) 28.2 (20-40) % [place] % (Auto) 8.6 (2-11) % Eos % (Auto) 2.8 (0-4) % Baso % (Auto) 0.6 (0-2) % Lymph # (Auto) 2.3 (1.2-4.9) X10*3/uL [place] # (Auto) 0.7 (0.1-1.2) X10*3/uL Eos # (Auto) 0.2 (0.0-0.4) X10*3/uL Baso # (Auto) 0.1 (0.0-0.2) X10*3/uL Abs Immat Gran (auto) 0.03 (0.00-0.03) X10*3/uL Absolute Neuts (auto) 4.7 (2.0-8.3) X10*3/uL Absolute Nucleated RBC 0.000 (0.0-0.012) X10*3/uL Nucleated RBC % (auto) 0.0 (0.0-0.2) /100WBC Sodium 138 Cancelled (135-145) mmol/L Potassium 4.4 Cancelled (3.3-5.1) mmol/L Chloride 103 Cancelled (96-108) mmol/L Carbon Dioxide 18 L Cancelled (22-29) mmol/L Anion Gap 21 H Cancelled (12-20) BUN 10 Cancelled (9-16) mg/dL Creatinine 1.37 Cancelled (0.5-1.4) mg/dL Estim Creat Clear Calc 64.6 Cancelled Estimated GFR > 60 Cancelled Random Glucose 111 Cancelled (60-115) mg/dL Calcium 9.4 Cancelled (8.4-10.2) mg/dL Magnesium 2.2 (1.6-2.6) mg/dL Discharge Plan Discharge Clinical Impression: Epileptic seizure Qualifiers: Epilepsy type: unspecified Intractability: not intractable Status epilepticus: without status epilepticus Qualified Code(s): G40.909 - Epilepsy, unspecified, not intractable, without status epilepticus Patient Disposition: Home, Self-Care Instructions: Epilepsy (ED) Prescriptions: No Action levetiracetam [Keppra] 1,000 mg Tablet 1,000 mg PO BID RF: 0 levetiracetam 1,000 mg tablet 1,000 mg PO BID Qty: 60 RF: 2 levetiracetam [Keppra] 1,000 mg tablet 1,500 mg PO BID 20 Days Qty: 60 RF: 0 levetiracetam 1,000 mg tablet 1,000 mg PO BID Qty: 60 RF: 1 Referrals: Physician,Unknown [Primary Care Provider] - 5 days
[2020-09-15 13:57] VITALS: BP 118/69; PULSE 96; RESP 12; TEMP 36.9; O2SAT 97
[2020-09-15 14:09] LABS: Basophils Absolute Auto 0.1 X10*3/uL (0.0-0.2); Basophils Percent Auto 0.6 % (0-2); Eosinophils Absolute Auto 0.2 X10*3/uL (0.0-0.4); Eosinophils Percent Auto 2.8 % (0-4); Hematocrit 47.5 % (42-52); Hemoglobin 16.3 g/dl (14.0-18.0); Imm Gran Abs Auto 0.03 X10*3/uL (0.00-0.03); Imm Gran Pct Auto 0.4 % (0.0-0.4); Lymphocytes Absolute Auto 2.3 X10*3/uL (1.2-4.9); Lymphocytes Percent Auto 28.2 % (20-40); MANUAL DIFF FLAG NO; Mean Corpuscular HGB Conc 34.3 g/dl (31.0-36.0); Mean Corpuscular Hemoglobin 34.4 pg (27.0-33.0); Mean Corpuscular Volume 100.2 fL (80-98); Monocytes Absolute Auto 0.7 X10*3/uL (0.1-1.2); Monocytes Percent Auto 8.6 % (2-11); Neutrophils Absolute Auto 4.7 X10*3/uL (2.0-8.3); Neutrophils Percent Auto 59.4 % (45-73); Platelet Count 246 X10*3/uL (160-400); Red Blood Count 4.74 X10*6/uL (4.60-5.80); Red Cell Distribution Width 12.9 % (11.0-16.0)
[2020-09-15 14:42] LABS: Blood Urea Nitrogen 10 mg/dL (9-16); Calcium 9.4 mg/dL (8.4-10.2); Creatinine Clr Calc Pharmacy 64.6; Estimated Glomerular Filt Rate > 60; Glucose Random 111 mg/dL (60-115); Magnesium 2.2 mg/dL (1.6-2.6)
[2020-09-15 14:53] LABS: Anion Gap 21 (12-20); Carbon Dioxide 18 mmol/L (22-29); Chloride 103 mmol/L (96-108); Potassium 4.4 mmol/L (3.3-5.1); Sodium 138 mmol/L (135-145)
[2020-09-15 15:27] VITALS: BP 121/70; PULSE 95; RESP 16; O2SAT 99
[2020-09-15] MEDS: levETIRAcetam 1,000 MG TABLET 1000 MG PO (15:27)
== END 2020-09-15 15:38 | disposition home or self-care (01) ==
PROVIDERS: Emergency Provider Emergency Medicine
DX: G40.909 Epilepsy, unspecified, not intractable, without status epilepticus (principal); F17.210 Nicotine dependence, cigarettes, uncomplicated
CPT/HCPCS: 36415; 80048; 83735; 85025; 99283; 99284

== ENCOUNTER 2020-09-21 15:18 | Emergency (ER) | payer MEDICAID, SELFPAY ==
--- NOTE | ~2020-09-21 | CT_ITS ---
EXAMINATION: CT HEAD WITHOUT CONTRAST CT CERVICAL SPINE WITHOUT CONTRAST CLINICAL INFORMATION: Fall COMPARISON: CT head and CT cervical spine. CT head August 13, 2020 August 10, 2020 TECHNIQUE: Imaging was performed from the skull base to vertex without intravenous administration of contrast. In addition, helical noncontrast CT imaging was acquired through the cervical spine and source images were reviewed along with axial reconstructions and sagittal and coronal MPRs. [This CT examination was performed using dose optimization techniques as appropriate, variously including the following: *Automated exposure control *Adjustment of mA and/or kV according to patient size (this includes techniques or standardized protocols for targeted exams where dose is matched to indication/reason for exam; i.e. extremities or head) *Use of iterative reconstruction technique] DLP: 1307 mGy-cm FINDINGS: HEAD: No intracranial mass, hemorrhage, or midline shift is visualized. The ventricles and sulci are proportional. No extra-axial collections are identified. Small retention cyst posterior left maxillary sinus. The mastoid air cells and middle ear cavities are normally aerated. CERVICAL SPINE: There is no evidence of acute cervical spine fracture. Vertebral bodies remain normal in height. Cervical vertebrae have normal alignment. Cervical disc heights are normal. Facet joints are normal. No pre- or paravertebral soft tissue abnormality is identified. Limited assessment of the lung apices is unremarkable. CT/CT cervical spine wo con IMPRESSION: 1. No acute intracranial pathology. 2. No CT evidence of acute cervical spine fracture or traumatic subluxation
--- NOTE | ~2020-09-21 | CT_ITS ---
EXAMINATION: CT HEAD WITHOUT CONTRAST CT CERVICAL SPINE WITHOUT CONTRAST CLINICAL INFORMATION: Fall COMPARISON: CT head and CT cervical spine. CT head August 13, 2020 August 10, 2020 TECHNIQUE: Imaging was performed from the skull base to vertex without intravenous administration of contrast. In addition, helical noncontrast CT imaging was acquired through the cervical spine and source images were reviewed along with axial reconstructions and sagittal and coronal MPRs. [This CT examination was performed using dose optimization techniques as appropriate, variously including the following: *Automated exposure control *Adjustment of mA and/or kV according to patient size (this includes techniques or standardized protocols for targeted exams where dose is matched to indication/reason for exam; i.e. extremities or head) *Use of iterative reconstruction technique] DLP: 1307 mGy-cm FINDINGS: HEAD: No intracranial mass, hemorrhage, or midline shift is visualized. The ventricles and sulci are proportional. No extra-axial collections are identified. Small retention cyst posterior left maxillary sinus. The mastoid air cells and middle ear cavities are normally aerated. CERVICAL SPINE: There is no evidence of acute cervical spine fracture. Vertebral bodies remain normal in height. Cervical vertebrae have normal alignment. Cervical disc heights are normal. Facet joints are normal. No pre- or paravertebral soft tissue abnormality is identified. Limited assessment of the lung apices is unremarkable. CT/CT head/brain wo con IMPRESSION: 1. No acute intracranial pathology. 2. No CT evidence of acute cervical spine fracture or traumatic subluxation
[2020-09-21 15:27] VITALS: BP 136/76; BP 142/62; PULSE 101; PULSE 112; RESP 18; TEMP 36.8; O2SAT 97; O2SAT 98; BMI 23.0
[2020-09-21 15:36] LABS: Glucose, Whole Blood 95 mg/dL (60-115)
--- NOTE | 2020-09-21 16:32 | ED_ITS ---
HPI - Seizure General Chief Complaint: Seizure Stated Complaint: seizure Time Seen by Provider: 09/21/20 16:27 Source: patient Mode of arrival: EMS Limitations: no limitations History of Present Illness HPI Narrative: Patient with history of seizures on Keppra noncompliant missed 1 day of Keppra yesterday was outside had unwitnessed seizures came here with multiple abrasions on the face on the hand and the knee tongue bite and came in cervical collar, patient has another seizure last month patient denies any al cohol use no sleep deprivation no use of Wellbutrin or tramadol Seizure History: Yes Place: Outdoors Related Data Home Medications Medication Instructions Recorded Confirmed levetiracetam 1,000 mg tablet 1,000 mg PO BID 07/25/20 07/25/20 (Keppra) Previous Rx's Medication Instructions Recorded levetiracetam 1,000 mg tablet 1,000 mg PO BID #60 tab 07/25/20 levetiracetam 1,000 mg tablet 1,500 mg PO BID 20 Days #60 tab 08/10/20 (Keppra) levetiracetam 1,000 mg tablet 1,000 mg PO BID #60 tab 08/13/20 cephalexin 500 mg capsule 500 mg PO QID 10 Days #40 cap 09/21/20 Allergies Allergy/AdvReac Type Severity Reaction Status Date / Time No Known Allergies Allergy Verified 07/25/20 11:58 Review of Systems Review of Systems: Yes all other systems are reviewed and are negative PMFSH Past Medical History Medical History Seizures Social History Social History Alcohol intake: never Patient Tobacco Use Status: Current everyday Tobacco user Use of substances other than those prescribed or required for medical reasons: Yes Substance Use Type: Marijuana Advance Directives: No Advance Directives Information Provided: Yes Physical Exam Vital Signs: Vital Signs: Last Vital Signs Temp 98.2 F 09/21/20 15:27 Pulse 88 09/21/20 16:55 Resp 14 09/21/20 16:55 BP 123/71 09/21/20 16:55 Pulse Ox 99 09/21/20 16:55 Body Mass Index 23.0 Const: General: comfortable, no acute distress and tired appearing Orientation/consciousness: patient oriented x3 HENMT: Head: Yes normocephalic Head images: 1. Superficial abrasion on the nose bridge 2. Abrasion of the upper lip Teeth and gingiva: poor dentition (With multiple broken teeth) Throat: Yes posterior oropharynx normal Eyes: General: appearance normal, both eyes and all related structures Neck: Neck: Yes full ROM, Yes trachea midline and No tender Thyroid: Thyroid normal Chest: Chest palpation & inspection: normal inspection of the chest and normal palpation of entire chest wall Resp: Effort & Inspection: normal respiratory effort Auscultation: clear to auscultation bilaterally Cardio: Palpation: normal PMI Rate: regular rate Rhythm: regular rhythm Heart sounds: S1 normal heart sound present and S2 normal heart sound present Peripheral pulses: Peripheral pulses 2+ throughout GI: Inspection: Yes normal to inspection Palpation (GI): Soft to palpation and nontender Auscultation: normal bowel sounds : General: Yes no CVA tenderness Back/Spine/Pelvis: Back: no CVA tenderness Thoracic/Lumbar Spine: thoracic and lumbar spine normal to inspection, No thoracic spinal tenderness and No lumbar spinal tenderness Skin: Full body images: 1. Superficial abrasion 2. Superficial abrasion 3. Superficial abrasion 4. Superficial abrasion Neuro: General: patient oriented x3, moves all extremities, Normal light touch and pain sensation, no focal motor deficits and CN's II-XI intact bilaterally MDM - Seizure MDM Narrative Medical decision making narrative: Patient with recurrent seizures on Keppra noncompliant came with similar episode of seizures head CT and cervical spine CT negative labs stable was given 1 g of Keppra advised to continue Keppra and follow with neurologist Lab Data Attestation: I reviewed the patient's lab results. Result diagrams: 09/21/20 17:12 09/21/20 17:12 Labs: Lab Results 09/21/20 09/21/20 09/21/20 Range/Units 15:34 17:12 17:12 WBC 10.7 (4.8-10.8) X10*3/uL RBC 4.73 (4.60-5.80) X10*6/uL Hgb 16.0 (14.0-18.0) g/dl Hct 47.0 (42-52) % MCV 99.4 H (80-98) fL MCH 33.8 H (27.0-33.0) pg MCHC 34.0 (31.0-36.0) g/dl RDW 12.7 (11.0-16.0) % Plt Count 226 (160-400) X10*3/uL MPV 9.8 (9.4-12.4) fL Immature Gran % (Auto) 0.3 (0.0-0.4) % Neut % (Auto) 71.1 (45-73) % Lymph % (Auto) 17.3 L (20-40) % [place] % (Auto) 9.3 (2-11) % Eos % (Auto) 1.6 (0-4) % Baso % (Auto) 0.4 (0-2) % Lymph # (Auto) 1.9 (1.2-4.9) X10*3/uL [place] # (Auto) 1.0 (0.1-1.2) X10*3/uL Eos # (Auto) 0.2 (0.0-0.4) X10*3/uL Baso # (Auto) 0.0 (0.0-0.2) X10*3/uL Abs Immat Gran (auto) 0.03 (0.00-0.03) X10*3/uL Absolute Neuts (auto) 7.6 (2.0-8.3) X10*3/uL Absolute Nucleated RBC 0.000 (0.0-0.012) X10*3/uL Nucleated RBC % (auto) 0.0 (0.0-0.2) /100WBC Sodium 140 (135-145) mmol/L Potassium 4.5 (3.3-5.1) mmol/L Chloride 107 (96-108) mmol/L Carbon Dioxide 26 (22-29) mmol/L Anion Gap 12 (12-20) BUN 11 (9-16) mg/dL Creatinine 1.21 (0.5-1.4) mg/dL Estim Creat Clear Calc 73.1 Estimated GFR > 60 POC Glucose 95 (60-115) mg/dL Random Glucose 79 (60-115) mg/dL Calcium 9.3 (8.4-10.2) mg/dL Discharge Plan Discharge Clinical Impression: Generalized seizure Patient Disposition: Home, Self-Care Instructions: Epilepsy (ED) Additional Instructions: Continue taking medication as prescribed do not miss any of the does Follow-up with neurologist as soon as possible Care of abrasions as advised Take antibiotic as prescribed for abrasions Prescriptions: New cephalexin 500 mg capsule 500 mg PO QID 10 Days Qty: 40 RF: 0 No Action levetiracetam [Keppra] 1,000 mg Tablet 1,000 mg PO BID RF: 0 levetiracetam 1,000 mg tablet 1,000 mg PO BID Qty: 60 RF: 2 levetiracetam [Keppra] 1,000 mg tablet 1,500 mg PO BID 20 Days Qty: 60 RF: 0 levetiracetam 1,000 mg tablet 1,000 mg PO BID Qty: 60 RF: 1 Referrals: Reji Hathaway MD [Physician] - 3 days
[2020-09-21 16:55] VITALS: BP 123/71; PULSE 88; RESP 14; O2SAT 99
[2020-09-21] MEDS: levETIRAcetam in NaCl (iso-os) 1,000 MG/100 ML PIGGYBACK 400 MG IV (16:59)
[2020-09-21 17:19] LABS: MANUAL DIFF FLAG NO
[2020-09-21 17:21] LABS: Basophils Percent Auto 0.4 % (0-2); Eosinophils Absolute Auto 0.2 X10*3/uL (0.0-0.4); Eosinophils Percent Auto 1.6 % (0-4); Imm Gran Abs Auto 0.03 X10*3/uL (0.00-0.03); Imm Gran Pct Auto 0.3 % (0.0-0.4); Lymphocytes Absolute Auto 1.9 X10*3/uL (1.2-4.9); Lymphocytes Percent Auto 17.3 % (20-40); Mean Corpuscular Hemoglobin 33.8 pg (27.0-33.0); Mean Corpuscular Volume 99.4 fL (80-98); Mean Platelet Volume 9.8 fL (9.4-12.4); Monocytes Percent Auto 9.3 % (2-11); Neutrophils Absolute Auto 7.6 X10*3/uL (2.0-8.3); Neutrophils Percent Auto 71.1 % (45-73); Platelet Count 226 X10*3/uL (160-400); Red Blood Count 4.73 X10*6/uL (4.60-5.80); Red Cell Distribution Width 12.7 % (11.0-16.0); White Blood Count 10.7 X10*3/uL (4.8-10.8)
[2020-09-21 17:48] LABS: Anion Gap 12 (12-20); Blood Urea Nitrogen 11 mg/dL (9-16); Calcium 9.3 mg/dL (8.4-10.2); Carbon Dioxide 26 mmol/L (22-29); Chloride 107 mmol/L (96-108); Creatinine Clr Calc Pharmacy 73.1; Estimated Glomerular Filt Rate > 60; Glucose Random 79 mg/dL (60-115); Potassium 4.5 mmol/L (3.3-5.1); Sodium 140 mmol/L (135-145)
[2020-09-21] MEDS: cephALEXin 500 MG CAPSULE 1000 MG PO (18:24)
== END 2020-09-21 18:32 | disposition home or self-care (01) ==
PROVIDERS: Emergency Provider Internal Medicine
DX: G40.409 Other generalized epilepsy and epileptic syndromes, not intractable, without status epilepticus (principal); S00.81XA Abrasion of other part of head, initial encounter; S80.212A Abrasion, left knee, initial encounter; S80.211A Abrasion, right knee, initial encounter; S60.512A Abrasion of left hand, initial encounter; S60.511A Abrasion of right hand, initial encounter; W17.89XA Other fall from one level to another, initial encounter; Y93.89 Activity, other specified; Y92.9 Unspecified place or not applicable; Y99.9 Unspecified external cause status; Z91.14 Patient's other noncompliance with medication regimen
CPT/HCPCS: 36415; 70450; 72125; 80048; 82947; 85025; 99284; J1953

== ENCOUNTER 2021-03-26 16:22 | Emergency (ER) | payer MEDICAID, SELFPAY ==
--- NOTE | ~2021-03-26 | XR_ITS ---
EXAMINATION: XR FINGER, RIGHT CLINICAL INFORMATION: Laceration to the right thumb. COMPARISON: None. TECHNIQUE: 3 views of the right thumb. XR/XR finger RT min 2V FINDINGS/IMPRESSION: Soft tissue swelling and subtle laceration in the thumb without evidence of acute fractures or malalignment. No unexpected radiopaque foreign bodies.
[2021-03-26 16:28] VITALS: BP 120/90; PULSE 84
[2021-03-26 16:29] VITALS: BP 103/64; PULSE 90; RESP 18; TEMP 36.9; O2SAT 99; BMI 23.0
--- NOTE | 2021-03-26 16:52 | ED_ITS ---
HPI - Extremity Problem General Chief complaint: Extremity Injury, Upper Stated complaint: thumb lac Time Seen by Provider: 03/26/21 16:49 Source: patient and EMS Mode of arrival: EMS Limitations: no limitations History of Present Illness HPI Narrative: 30 y/o male presenting to the ER from home via EMS with a laceration to the right thumb he sustained just prior to arrival when he accidentally cut it on glass. He reports the cut is deep and he was having trouble controlling the bleeding so he called 911. He denies any numbness, tingling, weakness of the thumb. He is able to fully extend and flex the digit. He is right-hand dominant. He does not work. On arrival to the ER bleeding is controlled with direct pressure. Complaint: extremity pain Onset (ago): minute(s) Pain Consistency: constant Location: right Severity scale (1-10): 6 Quality: aching Radiation: proximal Relieving factors: nothing Exacerbating factors: nothing Associated symptoms: denies other symptoms Related Data Home Medications Medication Instructions Recorded Confirmed levetiracetam 1,000 mg tablet 1,000 mg PO BID 07/25/20 07/25/20 (Keppra) Previous Rx's Medication Instructions Recorded levetiracetam 1,000 mg tablet 1,000 mg PO BID #60 tab 07/25/20 levetiracetam 1,000 mg tablet 1,500 mg PO BID 20 Days #60 tab 08/10/20 (Keppra) levetiracetam 1,000 mg tablet 1,000 mg PO BID #60 tab 08/13/20 cephalexin 500 mg capsule 500 mg PO QID 10 Days #40 cap 09/21/20 Allergies Allergy/AdvReac Type Severity Reaction Status Date / Time No Known Allergies Allergy Verified 07/25/20 11:58 Review of Systems Verdana 4l Review of Systems: Verdana 4d Verdana 4d Constitutional: No Fever, No Chills Cardiovascular: No Chest Pain, No SOB Gastrointestinal: No Nausea, No Vomiting Musculoskeletal: + joint pain, No Myalgias Skin: + Skin Lesions, No rash Neuro: No Weakness, No Numbness Heme/Lymph: No BruisingBruising PMFSH Past Medical History Medical History Seizures Social History Social History Alcohol intake: never Patient Tobacco Use Status: Current everyday Tobacco user Substance Use Type: Marijuana Advance Directives: No Advance Directives Information Provided: No Physical Exam Verdana 4l Vital Signs: Verdana 4d Verdana 4d Vital Signs: Verdana 4d Verdana 4Bd Last Vital Signs Verdana 4d Slot Shift Supervisor New 4d Slot Shift Supervisor New 4d Temp 98.5 F 03/26/21 16:29 Slot Shift Supervisor New 4d Pulse 90 03/26/21 16:29 Slot Shift Supervisor New 4d Resp 18 03/26/21 16:29 BP 103/64 03/26/21 16:29 Pulse Ox 99 03/26/21 16:29 BMI result Body Mass Index 23.0 Appearance: Alert. Oriented X3. No acute distress. HEENT: normal inspection CVS: Normal heart rate and rhythm. Pulses normal. Respiratory: No respiratory distress. Skin: Skin warm and dry. Normal skin color. Normal skin turgor. No rashes. Extremities: Right thumb with a 2 cm linear laceration to the distal portion of the thumb right above the D IP joint on the palmar aspect. He has full flexion and extension of the thumb without any sensory deficits. Deep structures are intact. No nail involvement. Neurovascularly intact distally. Neuro: Oriented X 3. No motor deficit. No sensory deficit. Course Course Course Narrative: 30-year-old male with a with a right thumb laceration he sustained while taking out the trash today, thinks it was cut on glass. On examination laceration is linear and superficial. He is able to flex and extend the thumb. He decides paresthesias. Small amount of oozing that was able to be controlled with direct pressure. Amenable to suturing. X-ray pending. Tdap ordered. Reevaluation(s) Reevaluation #1: X-ray not showing any bony involvement or retained foreign body. Wound was closed with 6 sutures, patient tolerated well. Sterile dressing applied. Wound care discussed. Patient is stable for discharge home. Procedures Laceration Laceration 1: Site: hand Side (If applicable): right Size (cm): 2 Description: linear Depth: simple, single layer Local Anesthetic: lidocaine 2% Amount of anesthesia used (mL): 2 Pre-repair: wound explored, irrigated extensively and deep structures intact Skin layer closed with: nylon Size (cm): 4-0 Number of sutures: 6 Discharge Plan Discharge Clinical Impression: Laceration of right thumb Patient Disposition: Home, Self-Care Additional Instructions: Your x-ray today showed no fractures or retained glass. You will need your 6 stitches out in 7-10 days. See you doctor for this or come back to the ER and we will remove them. Do not get wet for 24 hours, after that you can briefly wash with soap and water then pat dry. Use bacitracin 2x per day. Keep wound clean and covered. Do not submerge in water, no swimming. If you develop signs of infection including increased pain, swelling, redness or drainage of pus come back to the ER for further evaluation. Prescriptions: No Action levetiracetam [Keppra] 1,000 mg Tablet 1,000 mg PO BID 0RF levetiracetam 1,000 mg tablet 1,000 mg PO BID Qty: 60 2RF levetiracetam [Keppra] 1,000 mg tablet 1,500 mg PO BID 20 Days Qty: 60 0RF levetiracetam 1,000 mg tablet 1,000 mg PO BID Qty: 60 1RF cephalexin 500 mg capsule 500 mg PO QID 10 Days Qty: 40 0RF
[2021-03-26] MEDS: Lidocaine HCl 2 % MPF 5 ML VIAL INFILTRATI (17:23)
[2021-03-26] MEDS: Diphth,Pertus(ACell),Tet Adult 0.5 ML SYRINGE IM (17:23)
== END 2021-03-26 18:15 | disposition home or self-care (01) ==
PROVIDERS: Emergency Provider Emergency Medicine
DX: S61.011A Laceration without foreign body of right thumb without damage to nail, initial encounter (principal); W25.XXXA Contact with sharp glass, initial encounter; Y93.E9 Activity, other interior property and clothing maintenance; Y92.019 Unspecified place in single-family (private) house as the place of occurrence of the external cause; Y99.8 Other external cause status
CPT/HCPCS: 12001; 73140; 90471; 90715; 99282; 99284

== ENCOUNTER 2021-07-05 15:13 | Emergency (ER) | payer OTHER, SELFPAY ==
--- NOTE | ~2021-07-05 | CT_ITS ---
CT HEAD WITHOUT IV CONTRAST CT CERVICAL SPINE WITHOUT IV CONTRAST INDICATION: Fall. COMPARISON: Head and cervical spine CT 09/21/2020. TECHNIQUE: Multidetector CT acquisitions of the head and cervical spine were obtained without IV contrast. Multiplanar reformats were acquired and utilized for image interpretation. This CT examination was performed using dose optimization techniques as appropriate, variously including the following: *Automated exposure control *Adjustment of mA and/or kV according to patient size (this includes techniques or standardized protocols for targeted exams where dose is matched to indication/reason for exam; i.e. extremities or head) *Use of iterative reconstruction technique FINDINGS: HEAD: There is no intracranial hemorrhage, hydrocephalus, extra-axial surface collection, midline shift, or other herniation pattern. Wise to white matter differentiation is diffusely maintained without evidence of an evolved acute territorial infarct. The basilar cisterns are preserved. No significant soft tissue abnormality. No acute osseous abnormality. 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 Retention cysts within the maxillary sinuses bilaterally. CERVICAL SPINE: There is anatomic alignment of the vertebral bodies and posterior elements. There is no acute fracture and there is no acute subluxation. The craniocervical and atlantoaxial articulations are normal. There is no prevertebral soft tissue swelling. No significant soft tissue abnormality within the neck. The visualized lung apices are clear. CT/CT cervical spine wo con IMPRESSION: - No acute intracranial findings. - No acute osseous findings within the cervical spine.
--- NOTE | ~2021-07-05 | CT_ITS ---
CT HEAD WITHOUT IV CONTRAST CT CERVICAL SPINE WITHOUT IV CONTRAST INDICATION: Fall. COMPARISON: Head and cervical spine CT 09/21/2020. TECHNIQUE: Multidetector CT acquisitions of the head and cervical spine were obtained without IV contrast. Multiplanar reformats were acquired and utilized for image interpretation. This CT examination was performed using dose optimization techniques as appropriate, variously including the following: *Automated exposure control *Adjustment of mA and/or kV according to patient size (this includes techniques or standardized protocols for targeted exams where dose is matched to indication/reason for exam; i.e. extremities or head) *Use of iterative reconstruction technique FINDINGS: HEAD: There is no intracranial hemorrhage, hydrocephalus, extra-axial surface collection, midline shift, or other herniation pattern. Wise to white matter differentiation is diffusely maintained without evidence of an evolved acute territorial infarct. The basilar cisterns are preserved. No significant soft tissue abnormality. No acute osseous abnormality. 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 Retention cysts within the maxillary sinuses bilaterally. CERVICAL SPINE: There is anatomic alignment of the vertebral bodies and posterior elements. There is no acute fracture and there is no acute subluxation. The craniocervical and atlantoaxial articulations are normal. There is no prevertebral soft tissue swelling. No significant soft tissue abnormality within the neck. The visualized lung apices are clear. CT/CT head/brain wo con IMPRESSION: - No acute intracranial findings. - No acute osseous findings within the cervical spine.
[2021-07-05 15:19] VITALS: BP 105/57; PULSE 102; RESP 16; TEMP 36.6; O2SAT 99
--- NOTE | 2021-07-05 15:26 | ED_ITS ---
HPI - General Adult General Chief complaint: Seizure Stated complaint: seizure Time Seen by Provider: 07/05/21 15:26 Source: patient and EMS Mode of arrival: EMS Limitations: no limitations History of Present Illness HPI narrative: Patient is a 30 year old male presenting to the emergency department today after a seizure. Patient states that he has a seizure disorder and today he had a seizure and fell. Patient denies striking his head with the incident. Patient denies any dizziness, lightheadedness, abdominal pain, nausea, vomiting, fever, chills, blurry vision, double vision, loss of vision, chest pain, difficulty breathing, shortness of breath, back pain, night sweats, pain with urination, in creased urinary frequency, increased urinary urgency, blood in his urine or stool, syncope or a near syncopal episode, bowel incontinence, bladder incontinence, bowel retention, bladder retention, or any other complaints at this time. Onset (ago): minute(s) Treatments prior to arrival: none Related Data Home Medications Medication Instructions Recorded Confirmed levetiracetam 1,000 mg tablet 1,000 mg PO BID 07/25/20 07/25/20 (Keppra) Previous Rx's Medication Instructions Recorded levetiracetam 1,000 mg tablet 1,000 mg PO BID #60 tab 07/25/20 levetiracetam 1,000 mg tablet 1,500 mg PO BID 20 Days #60 tab 08/10/20 (Keppra) levetiracetam 1,000 mg tablet 1,000 mg PO BID #60 tab 08/13/20 cephalexin 500 mg capsule 500 mg PO QID 10 Days #40 cap 09/21/20 Allergies Allergy/AdvReac Type Severity Reaction Status Date / Time No Known Allergies Allergy Verified 07/25/20 11:58 Review of Systems Constitutional: Constitutional: Reports no additional constitutional complaints, Denies chills, Denies fever(s) and Denies night sweats Eyes: Eyes: Reports no additional eye complaints, Denies blurry vision, Denies change in vision, Denies diplopia, Denies eye discharge, Denies loss of vision and Denies eye pain ENT: Denies dizziness Cardiovascular: Cardiovascular: Reports no additional cardiovascular complaints, Denies chest pain, Denies lightheadedness, Denies Loss of Consciousness and Denies dyspnea Respiratory: Respiratory: Reports no additional respiratory complaints and Denies dyspnea Gastrointestinal: Gastrointestinal: Reports no additional gastrointestinal complaints, Denies abdominal pain, Denies melena, Denies hematochezia, Denies change in bowel habits and Denies change in stool character Genitourinary: Genitourinary: Reports no additional male genitourinary complaints, Denies hematuria, Denies oliguria, Denies difficulty urinating, Denies dysuria, Denies urinary frequency, Denies urinary hesitancy, Denies urinary incontinence and Denies urinary urgency Musculoskeletal: Musculoskeletal: Reports no additional musculoskeletal complaints, Denies numbness and Denies tingling Neurologic: Denies dizziness, Denies loss of vision, Denies numbness, Reports seizure-like activity and Denies tingling Psychiatric: Psychiatric: Reports no additional psychiatric complaints Endocrine: Endocrine: Reports no additional endocrine complaints Hematologic/Lymphatic: Hematologic/Lymphatic: Reports no additional hematologic/lymphatic complaints Allergic/Immunologic: Allergic/Immunologic: Reports no additional allergic/immunologic complaints PMFSH Past Medical History Attestation statement: The following information was validated with the patient. Source: old records reviewed Medical History Seizures Social History Social History Alcohol intake: never Patient Tobacco Use Status: Current everyday Tobacco user Substance Use Type: Marijuana Advance Directives: No Advance Directives Information Provided: No Physical Exam ED Vital Signs: Vital Signs - 24 hr 07/05/21 15:19 07/05/21 15:30 07/05/21 16:50 Temperature 97.9 F 98.5 F Pulse Rate 102 H 97 72 Respiratory Rate 16 16 16 Blood Pressure 105/57 L 105/57 L 110/70 Pulse Oximetry 99 98 96 BMI result Body Mass Index 24.2 Const General: cooperative, no acute distress, alert and awake Nutritional Appearance: well nourished Orientation/consciousness: patient oriented x3 Limitations: no limitations HENMT Head: Yes normal to inspection and Yes atraumatic Ears: hearing grossly normal bilaterally and external ears normal General nose exam: Normal external nose present, no nasal discharge noted and no epistaxis Face and sinus: Yes normal facial exam, No abrasion and No laceration Mouth: Normal oral and palatal mucosa present, no drooling and no muffled voice Eyes General: appearance normal, both eyes and all related structures Periorbital: periorbital findings normal Eyelids: Yes eyelids normal Conjunctivae: conjunctivae normal Pupils: Equal, round and reactive pupils present EOM: EOMs intact bilaterally Neck Neck: Yes normal visual inspection, Yes full ROM and Yes no lymphadenopathy Chest Chest palpation & inspection: normal inspection of the chest Resp Effort & Inspection: normal respiratory effort and able to speak in complete sentences Auscultation: clear to auscultation bilaterally Cardio Rate: regular rate Rhythm: regular rhythm GI Inspection: Yes normal to inspection Neuro General: patient oriented x3 and moves all extremities Cranial nerves: Yes Equal, round and reactive pupils present Cognition (Neuro): normal cognition Motor exam (neuro): 5/5 motor strength present throughout Sensory Exam: Normal double simultaneous stimulation for sensation Coordination: [id number] test normal Extrem General: Yes normal to inspection, Yes full ROM and Yes capillary refill normal Psych Appearance: grossly normal Mental Status: mental status grossly normal Affect: normal affect Attitude: cooperative Thought process: Normal thought process present Thought content: Normal thought content present Insight: Good insight present (Psych) Medical Decision Making [facility] Narrative Medical decision making narrative: Patient is a 30 year old male presenting to the emergency department today after having a seizure. Patient's physical exam was unremarkable. Patient's blood work was unremarkable. Patient's head and C-Spine CT showed no acute p rocess. I explained my physical exam findings as well as all test results to the patient. I answered all questions asked by the patient. I stressed the importance of the patient taking his medication as prescribed. I stressed the importance of the patient following up with his primary care provider and neurologist. I stressed the importance of the patient returning to the emergency department immediately if his symptoms were to worsen or if [he/she/they] were to develop any dizziness, shortness of breath, difficulty breathing, chest pain, blurry vision, loss of vision, nausea, vomiting, abdominal pain, fever, chills, back pain, or any other complaints. Patient verbalized agreement and unders tanding with this treatment plan and discharge. Differential Diagnosis Differential Diagnosis: Seizure Medical Records Medical records reviewed: Yes I reviewed the patient's medical records. Lab Data Lab results reviewed: Yes I reviewed the patient's lab results. Result diagrams: 07/05/21 16:02 07/05/21 16:02 Labs: Lab Results 07/05/21 07/05/21 Range/Units 16:02 16:02 WBC 5.5 (4.8-10.8) X10*3/uL RBC 5.08 (4.60-5.80) X10*6/uL Hgb 15.4 (14.0-18.0) g/dl Hct 45.0 (42.0-52.0) % MCV 88.6 (80.0-98.0) fL MCH 30.3 (27.0-33.0) pg MCHC 34.2 (31.0-36.0) g/dl RDW 13.8 (11.0-16.0) % Plt Count 213 (160-400) X10*3/uL MPV 9.6 (9.4-12.4) fL Immature Gran % (Auto) 0.2 (0.0-0.4) % Neut % (Auto) 54.3 (45-73) % Lymph % (Auto) 32.2 (20-40) % [place] % (Auto) 10.3 (2-11) % Eos % (Auto) 2.5 (0-4) % Baso % (Auto) 0.5 (0-2) % Lymph # (Auto) 1.8 (1.2-4.9) X10*3/uL [place] # (Auto) 0.6 (0.1-1.2) X10*3/uL Eos # (Auto) 0.1 (0.0-0.4) X10*3/uL Baso # (Auto) 0.0 (0.0-0.2) X10*3/uL Abs Immat Gran (auto) 0.01 (0.00-0.03) X10*3/uL Absolute Neuts (auto) 3.0 (2.0-8.3) x10*3/uL Absolute Nucleated RBC 0.000 (0.0-0.012) X10*3/uL Nucleated RBC % (auto) 0.0 (0.0-0.2) /100WBC Sodium 137 (135-145) mmol/L Potassium 3.8 (3.3-5.1) mmol/L Chloride 105 (96-108) mmol/L Carbon Dioxide 23 (22-29) mmol/L Anion Gap 13 (12-20) BUN 12 (9-16) mg/dL Creatinine 1.36 (0.5-1.4) mg/dL Estim Creat Clear Calc 72.9 Estimated GFR > 60 Random Glucose 108 D (60-115) mg/dL Calcium 9.4 (8.4-10.2) mg/dL Total Bilirubin 0.6 (0.0-1.0) mg/dL AST 27 D (5-37) U/L ALT 23 (0-40) U/L Alkaline Phosphatase 102 (39-117) U/L Total Protein 7.5 (6.5-8.0) g/dL Albumin 4.3 (3.5-5.0) g/dL Imaging Data CT scan of head and C-Spine: Attestation: I personally reviewed and interpreted this imaging study as follows: My impression: No acute process. Radiologist's impression: CT HEAD WITHOUT IV CONTRAST CT CERVICAL SPINE WITHOUT IV CONTRAST INDICATION: Fall. COMPARISON: Head and cervical spine CT 09/21/2020. TECHNIQUE: Multidetector CT acquisitions of the head and cervical spine were obtained without IV contrast. Multiplanar reformats were acquired and utilized for image interpretation. This CT examination was performed using dose optimization techniques as appropriate, variously including the following: *Automated exposure control *Adjustment of mA and/or kV according to patient size (this includes techniques or standardized protocols for targeted exams where dose is matched to indication/reason for exam; i.e. extremities or head) *Use of iterative reconstruction technique FINDINGS: HEAD: There is no intracranial hemorrhage, hydrocephalus, extra-axial surface collection, midline shift, or other herniation pattern. Wise to white matter differentiation is diffusely maintained without evidence of an evolved acute territorial infarct. The basilar cisterns are preserved. No significant soft tissue abnormality. No acute osseous abnormality. 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 Retention cysts within the maxillary sinuses bilaterally. CERVICAL SPINE: There is anatomic alignment of the vertebral bodies and posterior elements. There is no acute fracture and there is no acute subluxation. The craniocervical and atlantoaxial articulations are normal. There is no prevertebral soft tissue swelling. No significant soft tissue abnormality within the neck. The visualized lung apices are clear. CT/CT head/brain wo con IMPRESSION: - No acute intracranial findings. ? - No acute osseous findings within the cervical spine. Dictated By: Edward Miller MD Signed By: Electronically signed by Edward Miller MD 07/05/21 1628 Discharge Plan Discharge Clinical Impression: Generalized seizure Patient Disposition: Home, Self-Care Instructions: Epilepsy (ED) Additional Instructions: Take you seizure medicine as prescribed. Follow up with your primary care provider and your neurologist. Return to the emergency department immediately if your symptoms worsen or if you develop any dizziness, shortness of breath, difficulty breathing, chest pain, blurry vision, loss of vision, nausea, vomiting, abdominal pain, fever, chills, back pain, or any other complaints. Prescriptions: No Action levetiracetam [Keppra] 1,000 mg Tablet 1,000 mg PO BID 0RF levetiracetam 1,000 mg tablet 1,000 mg PO BID Qty: 60 2RF levetiracetam [Keppra] 1,000 mg tablet 1,500 mg PO BID 20 Days Qty: 60 0RF levetiracetam 1,000 mg tablet 1,000 mg PO BID Qty: 60 1RF cephalexin 500 mg capsule 500 mg PO QID 10 Days Qty: 40 0RF Referrals: [facility] [place] Neuro/Sleep [Provider Group] ED Physician,Generic [Physician] - Interventions: ED Discharge Assessment Last Done: 07/05/21 17:48 Discharge Date/Time: 07/05/21 17:51 Print Language: Indian
[2021-07-05 15:30] VITALS: BP 103/68; BP 105/57; PULSE 113; PULSE 97; RESP 16; TEMP 36.9; O2SAT 97; O2SAT 98; BMI 24.2
--- NOTE | 2021-07-05 15:32 | PC.NURSE ---
ARRIVES WITH SMALL ABRASION LEFT TEMPORAL, DROWSY, C COLLAR IN PLACE
[2021-07-05 16:06] LABS: MANUAL DIFF FLAG NO
[2021-07-05 16:09] LABS: Basophils Percent Auto 0.5 % (0-2); Eosinophils Absolute Auto 0.1 X10*3/uL (0.0-0.4); Eosinophils Percent Auto 2.5 % (0-4); Hemoglobin 15.4 g/dl (14.0-18.0); Imm Gran Abs Auto 0.01 X10*3/uL (0.00-0.03); Imm Gran Pct Auto 0.2 % (0.0-0.4); Lymphocytes Absolute Auto 1.8 X10*3/uL (1.2-4.9); Lymphocytes Percent Auto 32.2 % (20-40); Mean Corpuscular HGB Conc 34.2 g/dl (31.0-36.0); Mean Corpuscular Hemoglobin 30.3 pg (27.0-33.0); Mean Corpuscular Volume 88.6 fL (80.0-98.0); Mean Platelet Volume 9.6 fL (9.4-12.4); Monocytes Absolute Auto 0.6 X10*3/uL (0.1-1.2); Monocytes Percent Auto 10.3 % (2-11); Neutrophils Percent Auto 54.3 % (45-73); Platelet Count 213 X10*3/uL (160-400); Red Blood Count 5.08 X10*6/uL (4.60-5.80); Red Cell Distribution Width 13.8 % (11.0-16.0); White Blood Count 5.5 X10*3/uL (4.8-10.8)
[2021-07-05 16:26] LABS: Alanine Aminotransferase 23 U/L (0-40); Albumin Level 4.3 g/dL (3.5-5.0); Alkaline Phosphatase 102 U/L (39-117); Anion Gap 13 (12-20); Aspartate Amino Transferase 27 U/L (5-37); Bilirubin Total 0.6 mg/dL (0.0-1.0); Blood Urea Nitrogen 12 mg/dL (9-16); Calcium 9.4 mg/dL (8.4-10.2); Carbon Dioxide 23 mmol/L (22-29); Chloride 105 mmol/L (96-108); Creatinine Clr Calc Pharmacy 72.9; Estimated Glomerular Filt Rate > 60; Glucose Random 108 mg/dL (60-115); Potassium 3.8 mmol/L (3.3-5.1); Sodium 137 mmol/L (135-145); Total Protein 7.5 g/dL (6.5-8.0)
--- NOTE | 2021-07-05 16:45 | PC.NURSE ---
NO SEIZURE ACTIVITY NOTED IN ED. HE REMAINS DROWSY
[2021-07-05 16:50] VITALS: BP 110/70; PULSE 72; RESP 16; O2SAT 96
--- NOTE | 2021-07-05 16:51 | PC.NURSE ---
PO CHALLENGE FOR DISCHARGE
== END 2021-07-05 17:51 | disposition home or self-care (01) ==
PROVIDERS: Physician Assistant Medical; Emergency Provider Internal Medicine
DX: G40.89 Other seizures (principal); Z91.81 History of falling
CPT/HCPCS: 36415; 70450; 72125; 80053; 85025; 99281; 99284

== ENCOUNTER 2021-08-11 14:29 | Emergency (ER) | payer OTHER, SELFPAY ==
--- NOTE | ~2021-08-11 | CT_ITS ---
EXAMINATION: CT HEAD WITHOUT CONTRAST CLINICAL INFORMATION: Right posterior hematoma and seizure. Rule out fracture or bleed. COMPARISON: Head CT 07/05/2021 TECHNIQUE: Imaging was performed from the skull base to vertex without intravenous administration of contrast. This CT examination was performed using dose optimization techniques as appropriate, variously including the following: *Automated exposure control *Adjustment of mA and/or kV according to patient size (this includes techniques or standardized protocols for targeted exams where dose is matched to indication/reason for exam; i.e. extremities or head) *Use of iterative reconstruction technique Total exam dose length product: 696 mGy-cm FINDINGS: No intra or extra-axial fluid collection, hemorrhage, or mass. No ventriculomegaly. No midline shift or herniation. Basal cisterns are patent. Wise-white matter differentiation is maintained. No territorial encephalomalacia. No significant volume loss. There is no abnormal attenuation within the brain parenchyma. No calvarial fracture or soft tissue abnormality. There is mild deformity of the left nasal bone compatible with prior nondisplaced fracture, exact acuity uncertain. There is soft tissue/mucosal thickening in the anterior left nasal cavity. Mucous retention cyst in the left maxillary antrum. Paranasal sinuses otherwise normally aerated. Visualized mastoid air cells are normally aerated. CT/CT head/brain wo con IMPRESSION: 1. No intracranial hemorrhage, mass, or other acute intracranial abnormality. 2. Age-indeterminate mildly displaced left nasal bone fracture with soft tissue/mucosal thickening in the left anterior nasal cavity/nose. Correlate clinically.
[2021-08-11 14:48] LABS: Glucose, Whole Blood 112 mg/dL (60-115)
[2021-08-11 14:57] VITALS: BP 120/80; BP 126/72; PULSE 117; PULSE 120; RESP 16; TEMP 36.8; O2SAT 97; O2SAT 99; BMI 23.9
[2021-08-11 15:25] VITALS: PULSE 106; RESP 14; O2SAT 98
--- NOTE | 2021-08-11 15:31 | ED_ITS ---
HPI - Seizure General Chief Complaint: Seizure Stated Complaint: CRISIS,? OPIOID & ETOH PER EMS PT DENIES BOTH Time Seen by Provider: 08/11/21 15:22 Source: patient and EMS Mode of arrival: EMS Limitations: no limitations History of Present Illness HPI Narrative: 30-year-old male with a known seizure disorder who was found by bystanders, the patient was on the side of a road and was altered. The patient was drowsy but arousable, his pupils were normal therefore he was not given Narcan. When the patient arrived in the emergency department he was awake and alert, he states that he has a seizure disorder. The patient is prescribed Keppra however and had insurance in [place] but does not have insurance in [place]. Because of this, he has not been able to get his HIV medications or his anti sei zure medications. The patient has no memory of his seizure. He states that he gets no aura with his seizures. The patient did sustain a head injury with a small hematoma and abrasion to right posterior aspect of his head, he does not know when his last tetanus shot was given. patient was seen in the emergency department on 07/05/2021 for a seizure. On that record of documented that he takes Keppra b.i.d.. complaint: seizure Onset (ago): unknown ( Occurred prior to arrival, was unwitnessed) Description of Episode: loss of consciousness Witnessed: No Trauma: Yes Seizure History: Yes Place: Outdoors Possible Precipitating Event: head injury Associated symptoms: other ( headache) Treatments prior to arrival: none Related Data Home Medications Medication Instructions Recorded Confirmed levetiracetam 1,000 mg tablet 1,000 mg PO BID 07/25/20 07/25/20 (Keppra) Previous Rx's Medication Instructions Recorded levetiracetam 1,000 mg tablet 1,000 mg PO BID #60 tabs 07/25/20 levetiracetam 1,000 mg tablet 1,500 mg PO BID 20 days #60 tabs 08/10/20 (Keppra) levetiracetam 1,000 mg tablet 1,000 mg PO BID #60 tabs 08/13/20 cephalexin 500 mg capsule 500 mg PO QID 10 days #40 caps 09/21/20 Allergies Allergy/AdvReac Type Severity Reaction Status Date / Time No Known Allergies Allergy Verified 08/11/21 14:57 Review of Systems Review of Systems: Yes all other systems are reviewed and are negative [facility], LAT[facility] Past Medical History FOR[facility], LAT[facility] Narrative: Social history: He does smoke 1 pack of cigarettes per day times many years. He denies alcohol use. He denies drug use. Medical History HIV disease Seizures Social History Social History Alcohol intake: never Patient Tobacco Use Status: Current someday Tobacco user Use of substances other than those prescribed or required for medical reasons: No Substance Use Type: Marijuana Advance Directives: No Advance Directives Information Provided: No Physical Exam Vital Signs: Vital Signs: Last Vital Signs Temp 98.3 F 08/11/21 14:57 Pulse 106 H 08/11/21 15:25 Resp 14 08/11/21 15:25 BP 126/72 08/11/21 14:57 Pulse Ox 98 08/11/21 15:25 O2 Del Method 08/11/21 15:25 BMI result Body Mass Index 23.9 Const: Other: Awake, alert, male patient, very pleasant cooperative, he does not appear to be in distress, answers all questions appropriately HEENT: Other: the patient has an abrasion to the right posterior part of the scalp, there is a small hematoma in this area, this area is tender to palpation Head: Yes normal to inspection and Yes normocephalic Ears: external ears normal General nose exam: Normal external nose present Face and sinus: Yes normal facial exam Mouth: Normal oral and palatal mucosa present Throat: Yes posterior oropharynx normal Eyes: General: appearance normal, both eyes and all related structures Pupils: Equal, round and reactive pupils present Neck: Other: no cervical spine tenderness Neck: Yes normal visual inspection, Yes no ly mphadenopathy, Yes trachea midline and Yes supple Chest: Chest palpation & inspection: normal inspection of the chest and normal palpation of entire chest wall Resp: Effort & Inspection: normal respiratory effort and able to speak in complete sentences Auscultation: clear to auscultation bilaterally Cardio: Rate: regular rate Rhythm: regular rhythm Heart sounds: S1 normal heart sound present, S2 normal heart sound present and no murmurs GI: Inspection: Yes normal to inspection Palpation (GI): Soft to palpation, nontender and no guarding Auscultation: normal bowel sounds : General: Yes no CVA tenderness Back/Spine/Pelvis: Back: no CVA tenderness Skin: General skin exam: no rashes or lesions noted Neuro: Cranial nerves: Yes CN's II-XII intact bilaterally and Yes Equal, round and reactive pupils present Cognition (Neuro): normal cognition Motor exam (neuro): 5/5 motor strength present throughout Extrem: General: Yes normal to inspection Psych: Appearance: grossly normal Speech and movement: Normal speech and movement present Affect: normal affect Attitude: cooperative Thought process: Normal thought process present Thought content: Normal thought content present Course Course Course Narrative: 30-year-old male who has a known seizure disorder who presents emergency department for altered mental status, he was found by bystanders lying on the side of the road. The by the time the patient got the emergency department he is awake and alert and at his baseline, I suspect the patient had an unwitnessed seizure. Patient does have a small abrasion hematoma to his right posterior scalp otherwise exam is unremarkable. The patient states the has not been able to get his medications filled since he does not have insurance. I did order laboratory evaluation including CBC, CMP, urine drug screen, CT scan of the head without contrast. Patient was ordered to get Keppra 1000 mg IV. Is also given a Tdap . He was given Tylenol 975 mg orally for his headache. 1706: Laboratory evaluation was unremarkable , the patient's CT scan of the head is pending. the patient's care was turned over to my colleague, Dr. Silva MDM - Seizure Lab Data Result diagrams: 08/11/21 15:24 08/11/21 15:24 Labs: Lab Results 08/11/21 08/11/21 08/11/21 Range/Units 14:44 15:24 15:24 WBC 9.8 (4.8-10.8) X10*3/uL RBC 5.01 (4.60-5.80) X10*6/uL Hgb 15.1 (14.0-18.0) g/dl Hct 44.3 (42.0-52.0) % MCV 88.4 (80.0-98.0) fL MCH 30.1 (27.0-33.0) pg MCHC 34.1 (31.0-36.0) g/dl RDW 13.3 (11.0-16.0) % Plt Count 276 D (160-400) X10*3/uL MPV 9.2 L (9.4-12.4) fL Immature Gran % (Auto) 0.4 (0.0-0.4) % Neut % (Auto) 70.4 (45-73) % Lymph % (Auto) 18.5 L (20-40) % [place] % (Auto) 8.0 (2-11) % Eos % (Auto) 2.2 (0-4) % Baso % (Auto) 0.5 (0-2) % Lymph # (Auto) 1.8 (1.2-4.9) X10*3/uL [place] # (Auto) 0.8 (0.1-1.2) X10*3/uL Eos # (Auto) 0.2 (0.0-0.4) X10*3/uL Baso # (Auto) 0.1 (0.0-0.2) X10*3/uL Abs Immat Gran (auto) 0.04 H (0.00-0.03) X10*3/uL Absolute Neuts (auto) 6.9 (2.0-8.3) x10*3/uL Absolute Nucleated RBC 0.000 (0.0-0.012) X10*3/uL Nucleated RBC % (auto) 0.0 (0.0-0.2) /100WBC Sodium 136 (135-145) mmol/L Potassium 4.4 (3.3-5.1) mmol/L Chloride 103 (96-108) mmol/L Carbon Dioxide 18 L (22-29) mmol/L Anion Gap 19 (12-20) BUN 12 (9-16) mg/dL Creatinine 1.10 (0.5-1.4) mg/dL Estim Creat Clear Calc 80.4 Estimated GFR > 60 POC Glucose 112 (60-115) mg/dL Random Glucose 94 (60-115) mg/dL Calcium 9.2 (8.4-10.2) mg/dL Total Bilirubin 0.5 (0.0-1.0) mg/dL AST 82 H (5-37) U/L ALT 42 H (0-40) U/L Alkaline Phosphatase 94 (39-117) U/L Total Protein 7.7 (6.5-8.0) g/dL Albumin 4.4 (3.5-5.0) g/dL Discharge Plan Discharge Clinical Impression: Generalized seizure, Head injury Patient Disposition: Still a Patient Instructions: Head Injury (ED) Additional Instructions: You need to speak to our counter caser and get [employer] [facility] insurance so that you can get your prescriptions for Keflex and for your HIV medications filled. Follow-up with your doctor in 2 days. Please return to the emergency department if your symptoms get worse or if you develop any symptoms that are concerning to you. Prescriptions: No Action levetiracetam [Keppra] 1,000 mg Tablet 1,000 mg PO BID levetiracetam 1,000 mg tablet 1,000 mg PO BID Qty: 60 2RF levetiracetam [Keppra] 1,000 mg tablet 1,500 mg PO BID 20 Days Qty: 60 0RF levetiracetam 1,000 mg tablet 1,000 mg PO BID Qty: 60 1RF cephalexin 500 mg capsule 500 mg PO QID 10 Days Qty: 40 0RF
[2021-08-11 15:37] LABS: Basophils Absolute Auto 0.1 X10*3/uL (0.0-0.2); Basophils Percent Auto 0.5 % (0-2); Eosinophils Absolute Auto 0.2 X10*3/uL (0.0-0.4); Eosinophils Percent Auto 2.2 % (0-4); Hematocrit 44.3 % (42.0-52.0); Hemoglobin 15.1 g/dl (14.0-18.0); Imm Gran Abs Auto 0.04 X10*3/uL (0.00-0.03); Imm Gran Pct Auto 0.4 % (0.0-0.4); Lymphocytes Absolute Auto 1.8 X10*3/uL (1.2-4.9); Lymphocytes Percent Auto 18.5 % (20-40); MANUAL DIFF FLAG NO; Mean Corpuscular HGB Conc 34.1 g/dl (31.0-36.0); Mean Corpuscular Hemoglobin 30.1 pg (27.0-33.0); Mean Corpuscular Volume 88.4 fL (80.0-98.0); Mean Platelet Volume 9.2 fL (9.4-12.4); Monocytes Absolute Auto 0.8 X10*3/uL (0.1-1.2); Neutrophils Absolute Auto 6.9 x10*3/uL (2.0-8.3); Neutrophils Percent Auto 70.4 % (45-73); Platelet Count 276 X10*3/uL (160-400); Red Blood Count 5.01 X10*6/uL (4.60-5.80); Red Cell Distribution Width 13.3 % (11.0-16.0); White Blood Count 9.8 X10*3/uL (4.8-10.8)
[2021-08-11 15:55] LABS: Alanine Aminotransferase 42 U/L (0-40); Albumin Level 4.4 g/dL (3.5-5.0); Alkaline Phosphatase 94 U/L (39-117); Anion Gap 19 (12-20); Aspartate Amino Transferase 82 U/L (5-37); Bilirubin Total 0.5 mg/dL (0.0-1.0); Blood Urea Nitrogen 12 mg/dL (9-16); Calcium 9.2 mg/dL (8.4-10.2); Carbon Dioxide 18 mmol/L (22-29); Chloride 103 mmol/L (96-108); Creatinine Clr Calc Pharmacy 80.4; Estimated Glomerular Filt Rate > 60; Glucose Random 94 mg/dL (60-115); Potassium 4.4 mmol/L (3.3-5.1); Sodium 136 mmol/L (135-145); Total Protein 7.7 g/dL (6.5-8.0)
[2021-08-11] MEDS: Acetaminophen 325 MG TABLET 650 MG PO (16:25)
[2021-08-11] MEDS: levETIRAcetam in NaCl (iso-os) 1,000 MG/100 ML PIGGYBACK 400 MG IV (16:26)
[2021-08-11] MEDS: Diphth,Pertus(ACell),Tet Adult 0.5 ML SYRINGE IM (16:27)
--- NOTE | 2021-08-11 16:48 | PC.NURSE ---
abrasion cleansed. not a lac. no sz activity in ED. sleeping on and off.
[2021-08-11 17:12] VITALS: BP 108/58; PULSE 89; RESP 20; O2SAT 97
[2021-08-16 15:41] LABS: Levetiracetam Keppra <2.0 mcg/mL (6.0-46.0)
== END 2021-08-11 19:20 | disposition still patient (30) ==
PROVIDERS: Emergency Provider Emergency Medicine Emergency Medical Services
DX: S06.9X9A Unspecified intracranial injury with loss of consciousness of unspecified duration, initial encounter (principal); S00.91XA Abrasion of unspecified part of head, initial encounter; R56.9 Unspecified convulsions; G44.309 Post-traumatic headache, unspecified, not intractable; F17.200 Nicotine dependence, unspecified, uncomplicated; F12.90 Cannabis use, unspecified, uncomplicated; X58.XXXA Exposure to other specified factors, initial encounter; Y93.9 Activity, unspecified; Y92.9 Unspecified place or not applicable; Y99.9 Unspecified external cause status; Z71.6 Tobacco abuse counseling; Z79.899 Other long term (current) drug therapy
CPT/HCPCS: 36415; 70450; 80053; 80177; 82947; 85025; 90715; 96372; 99284; J1953

== ENCOUNTER 2021-09-21 04:47 | Emergency (ER) | payer OTHER, SELFPAY ==
--- NOTE | ~2021-09-21 | XR_ITS ---
EXAMINATION: XR FOREARM, LEFT CLINICAL INFORMATION: Deformity. COMPARISON: None TECHNIQUE: AP and lateral views of the left forearm were obtained. FINDINGS: Focal soft tissue swelling is present over the lateral aspect of the distal radius. No underlying fracture or malalignment. Bone mineralization is normal. Elbow and wrist joints appear appropriately aligned on these images. No radiodense foreign bodies or soft tissue calcifications are identified. XR/XR forearm LT 2V IMPRESSION: Soft tissue swelling over the distal radius. No acute osseous findings.
--- NOTE | ~2021-09-21 | CT_ITS ---
EXAMINATION: CT HEAD WITHOUT CONTRAST CLINICAL INFORMATION: Seizure, facial contusion/laceration. COMPARISON: None TECHNIQUE: Contiguous axial imaging was performed from the skull base to vertex without intravenous administration of contrast. This CT examination was performed using dose optimization techniques as appropriate, variously including the following: *Automated exposure control *Adjustment of mA and/or kV according to patient size (this includes techniques or standardized protocols for targeted exams where dose is matched to indication/reason for exam; i.e. extremities or head) *Use of iterative reconstruction technique DLP: 699 mGy-cm FINDINGS: There is no evidence of acute intracranial hemorrhage or territorial infarction. No abnormal mass effect or midline shift is seen. Wise to white matter differentiation is well preserved. No extra-axial fluid collections are identified. The ventricles are normal in size. There is no abnormal attenuation within the brain parenchyma. The osseous structures and soft tissues are normal. The mastoid air cells and visualized portions of the paranasal sinuses are well aerated. CT/CT head/brain wo con IMPRESSION: No acute intracranial process seen.
[2021-09-21 04:52] VITALS: BP 120/80; BP 134/85; PULSE 104; PULSE 108; RESP 18; TEMP 37.3; O2SAT 96; O2SAT 98; BMI 25.2
--- NOTE | 2021-09-21 04:55 | ECG_ITS ---
Test Reason : SEIZURE Blood Pressure : / mmHG Vent. Rate : 105 BPM Atrial Rate : 105 BPM P-R Int : 128 ms QRS Dur : 076 ms QT Int : 328 ms P-R-T Axes : 062 085 064 degrees QTc Int : 433 ms Sinus tachycardia Otherwise normal ECG No significant changes when compared with the previous EKG of 25 july 2020 Referred By: Generic ED Physician Electronically Signed By:HARI CAMPA
[2021-09-21 04:59] LABS: Glucose, Whole Blood 125 mg/dL (60-115)
[2021-09-21 05:48] LABS: Basophils Percent Auto 0.2 % (0-2); Eosinophils Percent Auto 0.4 % (0-4); Hematocrit 44.5 % (42.0-52.0); Hemoglobin 15.2 g/dl (14.0-18.0); Imm Gran Abs Auto 0.03 X10*3/uL (0.00-0.03); Imm Gran Pct Auto 0.4 % (0.0-0.4); Lymphocytes Absolute Auto 1.6 X10*3/uL (1.2-4.9); Lymphocytes Percent Auto 19.2 % (20-40); MANUAL DIFF FLAG NO; Mean Corpuscular HGB Conc 34.2 g/dl (31.0-36.0); Mean Corpuscular Hemoglobin 30.5 pg (27.0-33.0); Mean Corpuscular Volume 89.4 fL (80.0-98.0); Mean Platelet Volume 9.2 fL (9.4-12.4); Monocytes Absolute Auto 0.9 X10*3/uL (0.1-1.2); Monocytes Percent Auto 10.8 % (2-11); Neutrophils Absolute Auto 5.8 x10*3/uL (2.0-8.3); Platelet Count 199 X10*3/uL (160-400); Red Blood Count 4.98 X10*6/uL (4.60-5.80); Red Cell Distribution Width 13.4 % (11.0-16.0); White Blood Count 8.5 X10*3/uL (4.8-10.8)
[2021-09-21 05:49] VITALS: BP 113/80; PULSE 97; RESP 12; TEMP 36.6; O2SAT 93
[2021-09-21 06:04] LABS: Alanine Aminotransferase 21 U/L (0-40); Albumin Level 4.6 g/dL (3.5-5.0); Alkaline Phosphatase 87 U/L (39-117); Anion Gap 15 (12-20); Aspartate Amino Transferase 37 U/L (5-37); Bilirubin Direct 0.2 mg/dL (0.0-0.5); Bilirubin Total 0.5 mg/dL (0.0-1.0); Blood Urea Nitrogen 17 mg/dL (9-16); Calcium 9.1 mg/dL (8.4-10.2); Carbon Dioxide 26 mmol/L (22-29); Chloride 100 mmol/L (96-108); Estimated Glomerular Filt Rate > 60; Glucose Random 110 mg/dL (60-115); Potassium 4.3 mmol/L (3.3-5.1); Sodium 137 mmol/L (135-145)
--- NOTE | 2021-09-21 06:48 | ED.SEIZURE ---
HPI - Seizure General Chief Complaint: Seizure Stated Complaint: seizure Time Seen by Provider: 09/21/21 06:48 Source: patient Mode of arrival: EMS History of Present Illness HPI Narrative: 31-year-old male with history of seizures, on Keppra, denies any recent changes in medications but states he may have missed a couple of doses and otherwise denies alcohol/ drugs but states he does smoke weed sometimes. He denies any recent illnesses involving fever, chills, GI or symptoms. Patient states that he had a seizure while he was in bed resulting in head strike. Seizure History: Yes Related Data Home Medications Medication Instructions Recorded Confirmed levetiracetam 1,000 mg tablet 1,000 mg PO BID 07/25/20 07/25/20 (Keppra) Previous Rx's Medication Instructions Recorded levetiracetam 1,000 mg tablet 1,000 mg PO BID #60 tabs 07/25/20 levetiracetam 1,000 mg tablet 1,500 mg PO BID 20 days #60 tabs 08/10/20 (Keppra) levetiracetam 1,000 mg tablet 1,000 mg PO BID #60 tabs 08/13/20 cephalexin 500 mg capsule 500 mg PO QID 10 days #40 caps 09/21/20 levetiracetam 1,000 mg tablet 1,000 mg PO BID #60 tabs 08/11/21 (Keppra) Allergies Allergy/AdvReac Type Severity Reaction Status Date / Time No Known Allergies Allergy Verified 08/11/21 14:57 Review of Systems Review of Systems: Pertinent positives and negatives as stated in HPI 10 point review of systems is otherwise negative. [facility] Past Medical History Source: nursing notes reviewed Medical History HIV disease Seizures Social History Social History Alcohol intake: never Patient Tobacco Use Status: Current everyday Tobacco user Use of substances other than those prescribed or required for medical reasons: Yes Substance Use Type: Marijuana Advance Directives: No Physical Exam Vital Signs: Vital Signs: Last Vital Signs Temp 97.9 F 09/21/21 05:49 Pulse 104 H 09/21/21 07:58 Resp 18 09/21/21 07:58 BP 120/82 09/21/21 07:58 Pulse Ox 98 09/21/21 07:58 O2 Del Method 09/21/21 07:58 BMI result Body Mass Index 25.2 VITAL SIGNS: Reviewed. GENERAL: Well developed, well nourished, in no acute distress. HEAD: Normocephalic/ Laceration over right eyebrow noted and currently hemostatic EYES: PERRLA, EOMI EARS: Ext canals without abnormality, TMs non-bulging and non-erythematous NOSE: Nares patent bilateral OROPHARYNX: no oral lesions noted, posterior pharynx clear NECK: Supple, no adenopathy LUNGS: Normal breath sounds. No adventitious sounds or accessory muscle use. SpO2<98> CARDIOVASCULAR: Regular rate and rhythm without noted murmurs ABDOMEN: Soft, non-tender, non-distended with bowel sounds. MUSCULOSKELETAL: No tenderness, deformities, or effusions noted on gross inspection. EXTREMITIES: No cyanosis, clubbing or edema; LEFT UPPER EXTREMITY: there is a small laceration, superficial, to the left forearm and noted swelling with questionable deformity. SKIN: Inspection of the skin reveals no rashes NEUROLOGIC: Alert and oriented x 4. Strength and sensation to light touch were grossly intact x 4. Course Course Course Narrative: 31-year-old male with history and clinical presentation of breakthrough seizure, stating that he has not had a seizure and quadrant and denies any recent changes in medications but it appears he may have missed a couple of doses. He has a laceration over the right eyebrow which will be repaired, patient will receive Tdap, and left forearm will be evaluated for possible fracture. Review of all investigations otherwise negative for acute findings, eyebrow laceration was repaired, patient received Tdap, patient received 1 g of Keppra p.o.. MDM - Seizure Lab Data Result diagrams: 09/21/21 05:44 09/21/21 05:44 Labs: Lab Results 09/21/21 09/21/21 09/21/21 Range/Units 04:54 05:44 05:44 WBC 8.5 (4.8-10.8) X10*3/uL RBC 4.98 (4.60-5.80) X10*6/uL Hgb 15.2 (14.0-18.0) g/dl Hct 44.5 (42.0-52.0) % MCV 89.4 (80.0-98.0) fL MCH 30.5 (27.0-33.0) pg MCHC 34.2 (31.0-36.0) g/dl RDW 13.4 (11.0-16.0) % Plt Count 199 D (160-400) X10*3/uL MPV 9.2 L (9.4-12.4) fL Immature Gran % (Auto) 0.4 (0.0-0.4) % Neut % (Auto) 69.0 (45-73) % Lymph % (Auto) 19.2 L (20-40) % [place] % (Auto) 10.8 (2-11) % Eos % (Auto) 0.4 (0-4) % Baso % (Auto) 0.2 (0-2) % Lymph # (Auto) 1.6 (1.2-4.9) X10*3/uL [place] # (Auto) 0.9 (0.1-1.2) X10*3/uL Eos # (Auto) 0.0 (0.0-0.4) X10*3/uL Baso # (Auto) 0.0 (0.0-0.2) X10*3/uL Abs Immat Gran (auto) 0.03 (0.00-0.03) X10*3/uL Absolute Neuts (auto) 5.8 (2.0-8.3) x10*3/uL Absolute Nucleated RBC 0.000 (0.0-0.012) X10*3/uL Nucleated RBC % (auto) 0.0 (0.0-0.2) /100WBC Sodium 137 (135-145) mmol/L Potassium 4.3 (3.3-5.1) mmol/L Chloride 100 (96-108) mmol/L Carbon Dioxide 26 (22-29) mmol/L Anion Gap 15 (12-20) BUN 17 H (9-16) mg/dL Creatinine 1.02 (0.5-1.4) mg/dL Estim Creat Clear Calc 86.0 Estimated GFR > 60 POC Glucose 125 H (60-115) mg/dL Random Glucose 110 (60-115) mg/dL Calcium 9.1 (8.4-10.2) mg/dL Total Bilirubin 0.5 (0.0-1.0) mg/dL Direct Bilirubin 0.2 (0.0-0.5) mg/dL AST 37 D (5-37) U/L ALT 21 (0-40) U/L Alkaline Phosphatase 87 (39-117) U/L Total Protein 8.0 (6.5-8.0) g/dL Albumin 4.6 (3.5-5.0) g/dL Ethyl Alcohol < 10 mg/dL Procedures Laceration Laceration 1: Site: face ( Right eyebrow) Size (cm): 3 Description: linear and clean Depth: simple, single layer and involves muscle layer Local Anesthetic: lidocaine 1% Amount of anesthesia used (mL): 2 Pre-repair: wound explored and irrigated extensively Skin layer closed with: other Size (cm): 5-0 ( Prolene) Number of sutures: 9 Technique: simple, interrupted Subcutaneous layer closed with: chromic gut Size: 5-0 Number of sutures: 3 Technique: simple, interrupted Discharge Plan Discharge Clinical Impression: Generalized seizure, Eyebrow laceration Patient Disposition: Home, Self-Care Instructions: Facial Laceration (ED), Nonepileptic Seizures (ED), Care For Your Stitches (ED) Additional Instructions: 1. Resume all home medications as prescribed. Especially your seizure medication. Increase your fluid hydration especially with water. 2. He will need to have the sutures an your eyebrow removed in 5 days, there are 9. 3. Please follow-up with your primary care provider in the next 1-2 days. Return to the ER for worsening symptoms. Prescriptions: No Action levetiracetam [Keppra] 1,000 mg Tablet 1,000 mg PO BID levetiracetam 1,000 mg tablet 1,000 mg PO BID Qty: 60 2RF levetiracetam [Keppra] 1,000 mg tablet 1,500 mg PO BID 20 Days Qty: 60 0RF levetiracetam 1,000 mg tablet 1,000 mg PO BID Qty: 60 1RF cephalexin 500 mg capsule 500 mg PO QID 10 Days Qty: 40 0RF levetiracetam [Keppra] 1,000 mg tablet 1,000 mg PO BID Qty: 60 0RF
[2021-09-21 07:01] LABS: Ethanol < 10 mg/dL
[2021-09-21 07:22] VITALS: BP 108/71; PULSE 87; RESP 18; O2SAT 98
[2021-09-21] MEDS: Lidocaine HCl 1 % MPF 5 ML VIAL SUBCUT (07:54)
[2021-09-21] MEDS: Diphth,Pertus(ACell),Tet Adult 0.5 ML SYRINGE IM (07:54)
[2021-09-21 07:58] VITALS: BP 120/82; PULSE 104; RESP 18; O2SAT 98
--- NOTE | 2021-09-21 08:45 | PC.NURSE ---
Dr Bob to bedside for suture placement to laceration to right eyebrow
[2021-09-21] MEDS: levETIRAcetam 1,000 MG TABLET 1000 MG PO (09:32)
[2021-09-25 01:13] LABS: Levetiracetam Keppra <2.0 mcg/mL (6.0-46.0)
== END 2021-09-21 10:24 | disposition home or self-care (01) ==
PROVIDERS: Emergency Provider Student in an Organized Health Care Education/Training Program
DX: G40.409 Other generalized epilepsy and epileptic syndromes, not intractable, without status epilepticus (principal); S01.111A Laceration without foreign body of right eyelid and periocular area, initial encounter; W17.89XA Other fall from one level to another, initial encounter; B20 Human immunodeficiency virus [HIV] disease; F17.200 Nicotine dependence, unspecified, uncomplicated; F12.90 Cannabis use, unspecified, uncomplicated; Y93.9 Activity, unspecified; Y92.9 Unspecified place or not applicable; Y99.9 Unspecified external cause status; Z79.899 Other long term (current) drug therapy
CPT/HCPCS: 12052; 36415; 70450; 73090; 80053; 80177; 82077; 82248; 82947; 85025; 90471; 90715; 93005; 99284